=== PATIENT | male | born 1985 ===

== ENCOUNTER → 2020-09-08 10:02 | Outpatient (BNVA) | payer OTHER, SELFPAY | PROVIDERS: Visit Provider Nurse Practitioner | DX: Z76.89 Persons encountering health services in other specified circumstances (principal) ==

== ENCOUNTER 2020-09-18 09:02 | Outpatient (REF) | payer OTHER, SELFPAY ==
--- NOTE | 2020-09-18 09:08 | US_ITS ---
EXAMINATION: US ABDOMEN LIMITED CLINICAL INFORMATION: Upper abdominal pain, unspecified. COMPARISON: None TECHNIQUE: Real-time imaging of the right upper quadrant abdominal viscera. FINDINGS: PANCREAS: The pancreas is normal in size and contour and echogenicity. There is no pancreatic ductal distention or retroperitoneal effusion. LIVER: Normal. The liver is normal in size. The liver contour is normal. Parenchymal echogenicity is normal. No focal hepatic lesion. There is no intrahepatic biliary duct dilatation seen. GALLBLADDER: Normal. The gallbladder is physiologically distended without evidence of stones, sludge, polyps, wall thickening or pericholecystic fluid. Negative sonographic Rubio's sign. COMMON BILE DUCT: Normal in caliber measuring 0.3 cm in diameter. RIGHT KIDNEY: Normal. No hydronephrosis. No renal calculi or focal parenchymal lesions. The kidney measures 9.7 cm in maximum dimension. FREE FLUID: None. US/US abdomen limited IMPRESSION: Normal study.
== END 2020-09-18 09:03 | disposition home or self-care (01) ==
LOC: HO.US 09:02
PROVIDERS: Visit Provider Nurse Practitioner
DX: R10.10 Upper abdominal pain, unspecified (principal)
CPT/HCPCS: 76705

== ENCOUNTER → 2020-10-08 09:07 | Outpatient (BNVA) | payer OTHER, SELFPAY | PROVIDERS: Visit Provider Nurse Practitioner | DX: Z76.89 Persons encountering health services in other specified circumstances (principal) ==

== ENCOUNTER 2022-09-30 07:55 | Outpatient (REF) | payer OTHER, SELFPAY ==
--- NOTE | ~2022-09-30 | XR_ITS ---
EXAMINATION: XR THORACOLUMBAR SPINE CLINICAL INFORMATION: Pain COMPARISON: None TECHNIQUE: 3 views of the thoracic spine including swimmer's view FINDINGS: Bone alignment is normal. No fracture or dislocation. Normal disc spaces. Normal paraspinal soft tissues. XR/XR thoracic spine 2V IMPRESSION: Unremarkable exam.
== END 2022-09-30 07:56 | disposition home or self-care (01) ==
LOC: HO.XRAY 07:55
PROVIDERS: PCP Internal Medicine; Visit Provider Internal Medicine
DX: M54.6 Pain in thoracic spine (principal)
CPT/HCPCS: 72070

== ENCOUNTER 2024-02-16 10:43 | Outpatient (REF) | payer OTHER, SELFPAY ==
[2024-02-16 15:10] LABS: Alanine Aminotransferase 28 U/L (0-40); Albumin Level 4.7 g/dL (3.5-5.0); Alkaline Phosphatase 60 U/L (39-117); Anion Gap 13 (12-20); Aspartate Amino Transferase 30 U/L (5-37); Bilirubin Total 0.4 mg/dL (0.0-1.0); Blood Urea Nitrogen 11 mg/dL (9-16); Calcium 9.6 mg/dL (8.4-10.2); Carbon Dioxide 25 mmol/L (22-29); Chloride 106 mmol/L (96-108); Cholesterol 198 mg/dL (<200); Estimated Glomerular Filt Rate > 60; Glucose Random 82 mg/dL (60-115); HDL Cholesterol 59 mg/dL (>40); LDL Cholesterol Calculated 115 mg/dL (<100); Potassium 3.8 mmol/L (3.3-5.1); Sodium 140 mmol/L (135-145); Total Protein 7.7 g/dL (6.5-8.0); Triglycerides 124 mg/dL (<150)
[2024-02-17 04:01] LABS: Syphilis Screen Nonreactive (Nonreactive)
[2024-02-17 04:25] LABS: HIV AB/AG Nonreactive (Nonreactive); HIV Num 1 0.06 S/CO (0.00-0.99)
== END 2024-02-16 10:44 | disposition home or self-care (01) ==
LOC: HO.CHCLDS 10:43
PROVIDERS: Visit Provider Internal Medicine
DX: Z00.00 Encounter for general adult medical examination without abnormal findings (principal); Z13.6 Encounter for screening for cardiovascular disorders
CPT/HCPCS: 36415; 80053; 80061; 86780; 87389

== ENCOUNTER 2024-02-29 09:29 | Outpatient (REF) | payer OTHER, SELFPAY ==
--- NOTE | ~2024-02-29 | XR_ITS ---
EXAMINATION: XR SINUSES CLINICAL INFORMATION: Set headache COMPARISON: None available. TECHNIQUE: 3 views of the sinuses were obtained. FINDINGS: Paranasal sinuses appear clear without air-fluid levels. No fractures are identified. No radiodense foreign bodies. XR/XR sinus min 3V IMPRESSION: Unremarkable examination.
== END 2024-02-29 09:30 | disposition home or self-care (01) ==
LOC: HO.XRAY 09:29
PROVIDERS: PCP Internal Medicine; Visit Provider Internal Medicine
DX: G44.52 New daily persistent headache (NDPH) (principal)
CPT/HCPCS: 70220

== ENCOUNTER 2024-04-12 14:21 | Outpatient (AMB) | payer OTHER, SELFPAY ==
--- NOTE | 2024-04-12 14:44 | MHC.OFFVIS ---
Intake Visit Reasons: foreskin fissure (N48.89)/ circumcision consult Intake Note: New patient is present for Circumcision Consult Interactive Media Project Manager Required: Yes Interactive Media Project Manager Language: Erp Consultant Name: AL MCNAMARA-[facility] Allergies No Known Allergies Allergy (Verified 04/12/24 21:16) Medication List - Last Reconciled 04/12/24 by ABDOULAYE Clarke clotrimazole-betamethasone 1-0.05 % 1 appl topical BID 4 weeks naproxen mg PO HPI Comments Details: Derian is a pleasant 39-year-old Irish-speaking male patient of Dr. Cabrera who was accompanied by his significant other at today's office visit. He has a past medical history of headaches. He presents to the office today as a new patient for balanitis. In discussion with the patient today reports having followed up with his PCP for ongoing issues he has been having to the foreskin of his penis at which time recommendations were made for urology referral. In assessment of the patient today patient is uncircumcised and the foreskin is completely retractable. There is an area of irritation/redness noted to the penile gland upon retraction of penile foreskin. No open areas, lesions, and or odor noted. Discussed proper care of area. He otherwise denies any bothersome urinary issues or concerns. He denies urinary urgency, urinary frequency, incontinence, nocturia, hematuria, dysuria, foul smelling urine, changes to urinary stream, flank pain, fever, and or chills. He is happy with his current voiding parameters. In office urinalysis results reviewed with the patient today. He otherwise offers no other issues or concerns at this time. [facility] Medical History New persistent daily headache Foreskin fissure Family History Father Enlarged heart Mother Cancer Family/Other Diabetes Family history of thyroid problem Asthma HTN (hypertension) Other Arthritis Social History Alcohol intake: current Alcohol intake frequency: holidays/special occasions only Review of Systems Const All systems reviewed & are unremarkable except as noted in HPI and below Physical Exam Const General: cooperative, healthy appearing, comfortable, no acute distress, well developed, alert and awake Nutritional Appearance: average body habitus Orientation/consciousness: patient oriented x3 Limitations: no limitations HEENT Head: Yes normal to inspection, Yes normocephalic and Yes atraumatic Ears: hearing grossly normal bilaterally Eyes General: appearance normal, both eyes and all related structures Neck Neck: Yes normal visual inspection and Yes trachea midline Chest Chest palpation & inspection: normal inspection of the chest Resp Effort & Inspection: normal respiratory effort and able to speak in complete sentences Cardio Rate: regular rate GI Inspection: Yes normal to inspection General: Yes no CVA tenderness Penis: normal penis, uncircumcised and other (As per HPI) Meatus: meatus normal Scrotum: scrotum normal Testes: Testes normal Back/Spine/Pelvis Back: no CVA tenderness Skin General skin exam: no rashes or lesions noted Neuro General: patient oriented x3 Extrem General: Yes normal to inspection Psych Appearance: grossly normal and well kempt Mental Status: mental status grossly normal Speech and movement: Normal speech and movement present and Clear speech present Affect: normal affect Attitude: cooperative Thought process: Normal thought process present Thought content: Normal thought content present Insight: Fair insight present (Psych) Judgement: Fair judgement present (Psych) Results AMB Urinalysis, Automated UA Leukoctes 0 Livan/uL Last Edit by JAVIER Valdes on 04/12/24 15:06 UA Nitrite Negative Last Edit by JAVIER Valdes on 04/12/24 15:06 UA Urobilinogen 0.2 mg/dL Last Edit by JAVIER Valdes on 04/12/24 15:06 UA Protein 0 mg/dL Last Edit by JAVIER Valdes on 04/12/24 15:06 UA pH 6.0 Last Edit by JAVIER Valdes on 04/12/24 15:06 UA Blood 0 [place]/uL Last Edit by JAVIER Valdes on 04/12/24 15:06 UA Specific [place] 1.015 Last Edit by JAVIER Valdes on 04/12/24 15:06 UA Ketone Negative Last Edit by JAVIER Valdes on 04/12/24 15:06 UA Bilirubin 0 mg/dL Last Edit by JAVIER Valdes on 04/12/24 15:06 UA Glucose 0 mg/dL Last Edit by JAVIER Valdes on 04/12/24 15:06 Results Reviewed Results Reviewed: Laboratory Last Values Urine pH (Auto) 6.0 04/12/24 15:05 Specific [place] (Auto) 1.015 04/12/24 15:05 Urine Protein (Auto) 0 mg/dL 04/12/24 15:05 Glucose (UA)(Auto) 0 mg/dL 04/12/24 15:05 Urine Ketones (Auto) Negative 04/12/24 15:05 Urine Blood (Auto) 0 [place]/uL 04/12/24 15:05 Urine Nitrite (Auto) Negative 04/12/24 15:05 Urine Bilirubin (Auto) 0 mg/dL 04/12/24 15:05 Urine Urobilinogen (Auto) 0.2 mg/dL 04/12/24 15:05 Leukocyte Esterase (Auto) 0 Livan/uL 04/12/24 15:05 Assessment & Plan Assessment & Plan (1) Balanitis: Code(s): N48.1 - Balanitis Category: Medical Plan In office urinalysis results reviewed with the patient today. Discussed at length balanitis. Discussed proper care of area. Start clotrimazole-betamethasone 1-0.05 % Discussed at length risks and benefits of circumcision. Patient currently denies any bothersome urinary issues. He is happy with his current voiding parameters. Follow-up in 1-3 months; or sooner with any issues, concerns, and or questions. Orders: Orders AMB Urinalysis Automated Today Z13.9 - Encounter for screening, unspecified Medications: New clotrimazole-betamethasone 1-0.05 % Apply thin coat 2 times per day 1 appl topical BID 45 grams 0RF 4 weeks N48.1 - Balanitis Patient Instructions: The patient had an opportunity to ask questions regarding the treatment plan. All questions were answered. Physical exam, labs, and imaging were discussed and reviewed in detail. As well as risks, benefits, and discussion of treatment choices. No major barriers to understanding were identified. The patient expressed understanding and agreement with the above treatment plan. The patient was made aware they should contact our office by phone for worsening of their current condition, the appearance of new symptoms, or with any questions or concerns. Compliance is encouraged with any medications and follow up testing that is ordered. It is a privilege to be allowed the opportunity to participate in? your urological care.? Again, if you have any questions or concerns If you have any questions or concerns please do not hesitate to contact me. The office is [phone]. This note is constructed using voice recognition software. While every effort has been made to ensure accuracy drilling field operator errors may have been included. Yours sincerely, ABDOULAYE Clarke Coding Level of Care Code New Pt Level 4 (66117) Diagnoses Balanitis N48.1
== END 2024-04-12 15:46 | disposition home or self-care (01) ==
PROVIDERS: PCP Internal Medicine; Visit Provider Nurse Practitioner Family
DX: Z13.9 Encounter for screening, unspecified (principal); N48.1 Balanitis
CPT/HCPCS: 99204

== ENCOUNTER → 2024-04-12 14:21 | Outpatient (BNVA) | payer OTHER, SELFPAY | PROVIDERS: PCP Internal Medicine; Visit Provider Nurse Practitioner Family | DX: N48.1 Balanitis (principal) | CPT/HCPCS: 81003 ==

== ENCOUNTER 2024-05-15 09:21 | Outpatient (REF) | payer OTHER, SELFPAY ==
--- NOTE | ~2024-05-15 | XR_ITS ---
EXAMINATION: XR CHEST 2 VIEWS CLINICAL INFORMATION: Chest pain of 2 weeks'' duration. COMPARISON: None. TECHNIQUE: Frontal and lateral views of the chest were obtained. FINDINGS: The heart, great vessels, pulmonary vasculature and mediastinum are normal. The lungs show no focal infiltrate, effusion or pneumothorax. There is no acute osseous abnormality. XR/XR chest 2V IMPRESSION: No active cardiopulmonary disease.
== END 2024-05-15 09:22 | disposition home or self-care (01) ==
LOC: HO.XRAY 09:21
PROVIDERS: Absent Provider Internal Medicine; PCP Internal Medicine; Visit Provider Family Medicine
DX: R07.9 Chest pain, unspecified (principal)
CPT/HCPCS: 71046

== ENCOUNTER → 2024-05-23 09:17 | Outpatient (REF) | payer OTHER, SELFPAY ==
--- NOTE | 2024-05-23 09:21 | CA_ITS ---
Acquisition Time: 2024-05-23 09:28:49 Total Exercise Time: 00:13:30 Test Indications: CP Medications: SEE H Protocol: KATELIN Max HR: 184 BPM 101% of Pred: 181 BPM Max BP: 142/080 mmHG Max Work Load: 16.2 METS Exercise stress test exercise 13 min 30 sec of Katelin protocol achieving 101% MPHR, with 6/10 mid chest pressure at peak, without SOB, without arrhythmias, with normotensive response to exercise, without EKG changes. Chest pain resolved with rest. Test reviewed with Dr. Peterson. Recommend stress echocardiogram and echcoardiogram for further evlauation of chest pain Referred By: Tamiko Bush Overread By: Micheline Rosales
== END ==
LOC: HO.CARD 09:17
PROVIDERS: PCP Internal Medicine; Referring Provider Internal Medicine; Visit Provider Family Medicine
DX: R07.9 Chest pain, unspecified (principal)
CPT/HCPCS: 93017

== ENCOUNTER → 2024-05-23 09:21 | Outpatient (BNV) | payer OTHER, SELFPAY | PROVIDERS: PCP Internal Medicine; Referring Provider Internal Medicine; Visit Provider Nurse Practitioner | DX: R07.9 Chest pain, unspecified (principal) | CPT/HCPCS: 93016; 93018 ==

== ENCOUNTER 2024-08-23 09:56 | Outpatient (AMB) | payer OTHER, SELFPAY ==
--- NOTE | 2024-08-23 10:11 | MHC.OFFVIS ---
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 He is accompanied by his , history obtained with help of hostel parent in the room. Patient says a few months he has been having left-sided chest pain which is sharp in nature, pulsating radiating left arm. Was no clear association with exertion. Symptoms can happen at any time. One time symptom lasted for the whole day. Patient did not seek emergency room care at that point time. Since then he has been getting intermittent episodes of this chest discomfort. He does not claim that this chest pain has exertional in nature. The last episode happen 3 days ago which lasted for about 15 minutes. He has no associated symptoms of shortness of breath, diaphoresis. He underwent a treadmill stress test which she did 13 minutes on a treadmill and at high workload had no EKG changes or hemodynamic abnormalities suggestive of ischemia. He did have chest pressure while he was exercising on a treadmill. He is concerned about this chest pain due to the family history of 1 of his father's brother dying in the young age with heart related issues. Details are unknown. Denies any smoking. Denies any drug use. Denies hypertension, diabetes, hyperlipidemia. [facility] Medical History New persistent daily headache Foreskin fissure Family History Father Enlarged heart Mother Cancer Family/Other Diabetes Family history of thyroid problem Asthma HTN (hypertension) Other Arthritis Social History Alcohol intake: current Alcohol intake frequency: holidays/special occasions only Patient Tobacco Use Status: Never used Tobacco Review of Systems Const Denies chills, Denies daytime sleepiness, Denies fatigue, Denies fever(s), Denies frequent falls, Denies poor appetite, Denies snoring, Denies stops breathing during sleep, Denies weakness, Denies weight gain and Denies weight loss Eyes Denies loss of vision ENT Denies dizziness and Denies hearing loss Card Reports chest pain, Denies claudication, Denies leg edema, Denies lightheadedness, Denies palpitations, Denies dyspnea, Denies dyspnea on exertion and Denies orthopnea Resp Denies cough, Denies excessive phlegm production, Denies dyspnea, Denies dyspnea on exertion, Denies snoring and Denies wheezing GI Denies abdominal pain, Denies hematochezia, Denies change in bowel habits, Denies nausea and Denies vomiting Denies dysuria and Denies urinary frequency Musc Denies arthralgias, Denies muscle weakness, Denies numbness and Denies other (frequent falls) Skin/Breast Denies nail changes and Denies rash Neuro Denies Abnormal speech present, Denies dizziness, Denies frequent falls, Denies loss of vision, Denies memory loss, Denies numbness and Denies weakness Psych Denies depression and Denies memory loss Endo Denies fatigue and Denies palpitations Abilio/Lymph Reports easy bruising and Reports other (anemia) Aller/Immun Denies wheezing Physical Exam Vital Signs: Last Vital Signs Pulse 74 08/23/24 10:12 BP 120/78 08/23/24 10:12 BMI result Body Mass Index 22.8 Const General: cooperative, comfortable, no acute distress, well developed, alert, awake and Physically active Nutritional Appearance: well nourished and thin Orientation/consciousness: patient oriented x3 Limitations: no limitations HEENT Head: Yes normocephalic and Yes atraumatic Neck Neck: Yes trachea midline, Yes supple and Yes no JVD Resp Effort & Inspection: normal respiratory effort Auscultation: clear to auscultation bilaterally Cardio Jugular venous distension: no JVD Palpation: normal PMI Rate: regular rate Rhythm: regular rhythm Heart sounds: S1 normal heart sound present, S2 normal heart sound present, no click, no gallops, no murmurs and no rubs GI Auscultation: normal bowel sounds Skin General skin exam: no rashes or lesions noted Neuro General: patient oriented x3 and no focal motor deficits Speech: No Abnormal speech present Extrem General: Yes no clubbing, cyanosis or edema Psych Appearance: grossly normal Office Procedures EKG Details: EKG shows normal sinus rhythm with early transition from V1 to V2 which could represent normal variant versus possible posterior NH which is less likely. [id number], Complete Assessment & Plan Assessment & Plan (1) Atypical chest pain: Code(s): R07.89 - Other chest pain Plan: Patient's atypical chest pain with no clear exertional quality with exercise treadmill stress test extremely high workload within normal EKGs suggestive of unlikely underlying obstructive coronary disease. This was discussed with him details. Prognosis associated with high workload normal stress test was excellent and this was discussed with him. Would suggest an echocardiogram to rule out any structural abnormalities such as hypertrophic cardiomyopathy. EKG changes appear to be most likely related to normal variant. Further treatment based on the findings echocardiogram. I also advised him to figure out the details of his uncles premature that. He will look into it. Will follow up in the clinic if need be. Thank you for allowing me to partake in his care Coding Level of Care Code New Pt Level 3 (60964) Diagnoses Atypical chest pain R07.89 CPT Codes EKG - CPT: 10656-[id number], Complete ([id number])
[2024-08-23 10:12] VITALS: BP 120/78; PULSE 74; BMI 22.8
== END 2024-08-23 10:40 | disposition home or self-care (01) ==
PROVIDERS: PCP Internal Medicine; Visit Provider Internal Medicine Cardiovascular Disease
DX: R07.89 Other chest pain (principal)
CPT/HCPCS: 93010; 99203

== ENCOUNTER → 2024-08-23 09:56 | Outpatient (BNVA) | payer OTHER, SELFPAY | PROVIDERS: PCP Internal Medicine; Visit Provider Internal Medicine Cardiovascular Disease | DX: R07.89 Other chest pain (principal) | CPT/HCPCS: 93005 ==

== ENCOUNTER 2024-12-17 15:01 | Outpatient (REF) | payer OTHER, SELFPAY ==
[2024-12-17 17:48] LABS: MANUAL DIFF FLAG NO
[2024-12-17 17:59] LABS: Basophils Percent Auto 0.5 % (0-2); Eosinophils Absolute Auto 0.2 X10*3/uL (0.0-0.4); Eosinophils Percent Auto 2.5 % (0-4); Hematocrit 42.6 % (42.0-52.0); Hemoglobin 14.1 g/dl (14.0-18.0); Imm Gran Abs Auto 0.01 X10*3/uL (0.00-0.03); Imm Gran Pct Auto 0.2 % (0.0-0.4); Lymphocytes Absolute Auto 2.9 X10*3/uL (1.2-4.9); Lymphocytes Percent Auto 45.5 % (20-40); Mean Corpuscular HGB Conc 33.1 g/dl (31.0-36.0); Mean Corpuscular Hemoglobin 29.8 pg (27.0-33.0); Mean Corpuscular Volume 90.1 fL (80.0-98.0); Mean Platelet Volume 9.9 fL (9.4-12.4); Monocytes Absolute Auto 0.5 X10*3/uL (0.1-1.2); Neutrophils Absolute Auto 2.9 x10*3/uL (2.0-8.3); Neutrophils Percent Auto 44.3 % (45-73); Platelet Count 278 X10*3/uL (160-400); Red Blood Count 4.73 X10*6/uL (4.60-5.80); Red Cell Distribution Width 12.4 % (11.0-16.0); White Blood Count 6.4 X10*3/uL (4.8-10.8)
[2024-12-17 18:11] LABS: Anion Gap 7 (12-20); Blood Urea Nitrogen 7 mg/dL (9-16); C Reactive Protein < 0.04 mg/dL (< or = 0.50); Calcium 9.1 mg/dL (8.4-10.2); Carbon Dioxide 26 mmol/L (22-29); Chloride 111 mmol/L (96-108); Estimated Glomerular Filt Rate > 60; Glucose Random 84 mg/dL (60-115); Potassium 3.9 mmol/L (3.3-5.1); Sodium 140 mmol/L (135-145)
[2024-12-17 18:41] LABS: Erythrocyte Sedimentation Rate 2 MM/HR (0-15)
--- OUTSIDE RECORDS SUMMARY | 2024-12-17 19:16 | XMS_ITS | Clinical Summary ---
Author Organization [employer] Address [address] [place] [address] [address] [place] [address] Care Team Providers Care Lab Pack Chemist Name Role Phone Adriane Cabrera MD Primary Care Provider Allergies No known active allergies Medications ARIPiprazole (Abilify) 5 MG tabletIndicatio ns:Mood disorder (CMS/HCC) Take 1.5 tablets (7.5 mg) by mouth Once daily. 135 tablet 1 3 Active hydrocortisone 1 % lotionIndicatio ns:Foreskin fissure Apply topically 2 times daily. 29 mL 4 Active cholecalciferol (Vitamin D-3) 50 MCG (1999 UT) capsule take 1 by Oral route once a day 2 Active diclofenac sodium 3 % gel Apply 0.5 g topically. 4 Active indomethacin (Indocin) 50 MG capsule Take 1 capsule (50 mg) by mouth with breakfast and with evening meal. 60 capsule 4 Active ibuprofen 600 MG tablet Take 1 tablet (600 mg) by mouth every 8 (eight) hours if needed for moderate pain. 90 tablet 1 5 Active naproxen (Naprosyn) 500 MG tabletIndicatio ns:New daily persistent headache Not to use more than 3 times a week for Headache. 30 tablet 4 12/17/19 25 Discontinu ed(Therapy completed) Active Problems Problem Noted Date Diagnosed Date Chest pain 05/11/2024 Assessment & Plan (05/11/2024 11:19 AM EDT): Pt was seen in the [facility] ER on the 03 of May. Pt was Dx with costochondritis as they considered it to be MSK related. Pt continues with chest pain. Has strong family history of CAD. - Revised previous labs and LDL was 151 Pt was advised to maintain a healthy lifestyle including the consumption of healthy fats like salmon, avocados and nuts. -Pt was advised to not mix Indomethacin with Naproxen Relevant orders: Referral to Cardiology Stress Test XR Chest 2 Views Indomethacin (Indocin) 50 MG capsule Mood disorder 12/16/2022 Assessment & Plan (04/04/2023 1:12 PM EDT): Likely BPD with periods of severe depression and SI and separate periods of excess energy, irritability. Hx binge drinking, nonprescription opiate use (Tramadol). Variable appetite, poor sleep but no nightmares. Hallucinations (name called, ?person seen out of corner of eye). Family history BPD (brother). Poor response to antidepressants. Both Zyprexa 2.5 mg as well as Seroquel 25 mg caused intolerable sedation affecting his ability to work. Mood is only so-so. He will now increase to Abilify 5 mg to take 1.5 tablets (total dose 7.5 mg) once daily. F/U with me in 2 months. He agrees with the plan. Assessment & Plan (02/07/2023 9:45 AM EDT): Likely BPD with periods of severe depression and SI and separate periods of excess energy, irritability. Hx binge drinking, nonprescription opiate use (Tramadol). Variable appetite, poor sleep but no nightmares. Hallucinations (name called, ?person seen out of corner of eye). Family history BPD (brother). Poor response to antidepressants. Both Zyprexa 2.5 mg as well as Seroquel 25 mg caused intolerable sedation affecting his ability to work. Doing well with Abilify 5 mg once daily, and will continue. For problems with sleep, recommend decreasing caffeine consumption, last intake 6-8 hours before desired bedtime. F/U with me in 6-8 weeks. He agrees with the plan. Assessment & Plan (12/16/2022 10:25 AM EST): Likely BPD with periods of severe depression and SI and separate periods of excess energy, irritability. Hx binge drinking, nonprescription opiate use (Tramadol). Variable appetite, poor sleep but no nightmares. Hallucinations (name called, ?person seen out of corner of eye). Family history BPD (brother). Poor response to antidepressants. Both Zyprexa 2.5 mg as well as Seroquel 25 mg caused intolerable sedation affecting his ability to work. Doing well with Abilify 5 mg once daily, and will continue. For problems with sleep, recommend decreasing caffeine consumption, last intake 6-8 hours before desired bedtime. F/U with me in 6-8 weeks. He agrees with the plan. Vitamin D deficiency 01/19/2022 Encounters Date Type Department Care Team Description 12/17/2024 2:00 PM EST Office Visit [facility] [address] [place] [address] Dalia Benjamin MD Right sided facial pain (Primary Dx) 12/17/2024 Travel from Last 3 Months Immunizations Name Administration Dates Next Due Hep B, adult 03/16/2024,02/16/2024 Influenza injectable quadriv alent IIV4 with preservative 09/28/2019,01/30/2018 Influenza injectable quadrivalent preservative f ree 01/14/2022 Tdap 05/11/2024,01/30/2018 Family History Medical History Relation Name Comments COPD Father Heart attack Father's Brother Relation Name Status Comments Father Father's Brother Social History Tobacco Use Types Packs/Day Years Used Date Smoking Tobacco: Never Passive Smoke Exposure: Never Smokeless Tobacco: Never Depression Answer Date Recorded Patient Health Questionnaire-9 Score 5 04/04/2023 Housing Stability Answer Date Recorded What is your housing situation today? I have abida rogers 02/08/[address] you li ve. Do you have problems with any of the following? None of the above 02/08/2024 Food Insecurity Answer Date Recorded Within the past 12 months, y ou worried that your food would run out before you got money to buy more: Never True 02/08/2024 Within the past 12 months,th e food you bought just didn't last and you didn't have enough money to get more: Never True Transportation Answer Date Recorded In the past 12 months, has l ack of transportation kept you from medical appts, meetings, work or from getting things needed for daily living? No 02/08/2024 Utilities Answer Date Recorded In the past 12 months, has t he electric, gas, oil or water company threatened to shut off services in your home? No 02/08/2024 Depression Answer Date Recorded Patient Health Questionnaire-2 Score 0 04/04/2023 Sex and Gender Information Value Date Recorded Sex Assigned at Male 09/20/2022 10:31 AM EDT Legal Sex Male 10:31 AM EDT Gender Identity Male 09/20/2022 10:31 AM EDT Sexual Orientation Choose not to disclose 2021 10:31 AM EDT Last Filed Vital Signs Vital Sign Reading Time Taken Comments Blood Pressure 119/76 12/17/2024 2:05 PM EST Pulse 65 12/17/2024 2:05 PM EST Temperature 36.3 ??C (97.3 ??F) 12/17/2024 2:05 PM ES T Respiratory Rate 20 12/17/2024 2:05 PM EST Oxygen Saturation 99% 12/17/2024 2:05 PM EST Inhaled Oxygen Concentration - - Weight 65.8 kg (145 lb) 12/17/2024 2:05 PM EST Height 174 cm (5' 8.5 ) 12/17/2024 2:05 PM EST Body Mass Index 21.73 12/17/2024 2:05 PM EST Plan of Treatment Upcoming Encounters Date Type Department Care Team (Late st Contact Info) Description 01/21/2025 2:45 PM EST Office Visit [facility] P[facility]S [address] [place] [address] Adriane Cabrera MD [address] [place] [address] Health Maintenance Due Date Last Done Comments Alcohol/Substance Use Screening 1997 Family Planning (PISQ) 2000 Depression Screening 04/04/2024 04/04/2023, 04/04/2023 COVID-19 Vaccine (3 - 2023-2 5 season) 2024 05/20/2021, 04/22/2021 Influenza Vaccine (#1) 2024 2, 09/28/2019, 01/30/2018 Hepatitis B Vaccines (3 of 3 - 19+ 3-dose series) 08/18/2024 03/16/2024, 02/16/2024 SDOH Screening 02/07/2025 02/08/2024 Tobacco Screening 12/17/2025 12/17/2024 Lipid Panel 02/15/2029 02/16/2024, 01/18/2022 DTaP/Tdap/Td Vaccines (3 - T d or Tdap) 05/11/2034 05/11/2024, 01/30/2018 Zoster Vaccines (1 of 2) 2035 RSV Patients and Patients Aged 60 years or older (1 - 1-dose 75+ series) 2060 Hepatitis C Screening Completed 11/26/2021 HIV Screening Completed 02/16/2024, 11/26/2021 HIB Vaccines Aged Out No longer eligi ble based on patient's age to complete this topic HPV Vaccines Aged Out No longer eligi ble based on patient's age to complete this topic Hepatitis A Vaccines Aged Out No long er eligible based on patient's age to complete this topic IPV Vaccines Aged Out No longer eligi ble based on patient's age to complete this topic Meningococcal Vaccine Aged Out No yanet sania eligible based on patient's age to complete this topic Pneumococcal Vaccine: Pediatrics (0 to 5 Years) and At-Risk Patients (6 to 64 Years) Aged Out No longer eligible b ased on patient's age to complete this topic RSV under 20 months Aged Out No longe r eligible based on patient's age to complete this topic Rotavirus Vaccines Aged Out No longer eligible based on patient's age to complete this topic Procedures Procedure Name Priority Date/Time Associated Diagnosis Comments BASIC METABOLIC PANEL Routine 12/17/2024 3:03 PM EST Right sided facial pain C-REACTIVE PROTEIN Routine 12/17/2024 3: 03 PM EST Right sided facial pain SED RATE BY MODIFIED WESTERGREN Routine 12/17/2024 3:03 PM EST Right sided facial pain CBC WITH AUTO DIFFERENTIAL Routine 12/17/2024 3:03 PM EST Right sided facial pain HIV 1/2 ANTIGEN/ANTIBODY, FOURTH GENERATION W/RFL Routine 02/16/2024 10:45 AM EDT Annual physical exam LIPID PANEL, STANDARD Routine 02/16/2024 10:45 AM EDT Annual physical exam ZZZ HISTORICAL HEPATITIS C AB W/REFL TO HCV RNA, QN, PCR Routine 11/26/2021 10:18 AM EST from Last 3 Months or Most Recently Relevant to Health Maintenance Results * (ABNORMAL) CBC auto differential (12/17/2024 3:03 PM EST) White Blood Count 6.4 4.8 - 10.8 X10*3/uL [facility] Red Blood Count 4.73 4.60 - 5.80 X10*6/uL [facility] Hemoglobin 14.1 14.0 - 18.0 g/dl [facility] Hematocrit 42.6 42.0 - 52.0 % [facility] Mean Corpuscular Volume 90.1 80.0 - 98.0 fL [facility] Mean Corpuscular Hemoglobin 29.8 27.0 - 33.0 pg [facility] Mean Corpuscular HGB Conc 33.1 31.0 - 36.0 g/dl [facility] Red Cell Distribution Width 12.4 11.0 - 16.0 % [facility] Platelet Count 278 160 - 400 X10*3/uL [facility] Mean Platelet Volume 9.9 9.4 - 12.4 fL [facility] Neutrophils Percent Auto 44.3(L) 45 - 73 % [facility] Imm Gran Pct Auto 0.2 0.0 - 0.4 % [facility] Lymphocytes Percent Auto 45.5(H) 20 - 40 % [facility] Monocytes Percent Auto 7.0 2 - 11 % [facility] Eosinophils Percent Auto 2.5 0 - 4 % [facility] Basophils Percent Auto 0.5 0 - 2 % [facility] NRBC Pct Auto 0.0 0.0 - 0.2 /100WBC [facility] Neutrophils Absolute Auto 2.9 2.0 - 8.3 x10*3/uL [facility] Imm Gran Abs Auto 0.01 0.00 - 0.03 X10*3/uL [facility] Lymphocytes Absolute Auto 2.9 1.2 - 4.9 X10*3/uL [facility] Monocytes Absolute Auto 0.5 0.1 - 1.2 X10*3/uL [facility] Eosinophils Absolute Auto 0.2 0.0 - 0.4 X10*3/uL [facility] Basophils Absolute Auto 0.0 0.0 - 0.2 X10*3/uL [facility] NRBC Abs Auto 0.000 0.0 - 0.012 X10*3/uL [facility] Blood Venous blood specimen / Unknown 12/17/2024 3:03 PM EST 12/17/2024 5:46 PM EST us Dalia Benjamin MD LAB BLOOD ORDERABLES Final Re sult Performing Organization Address [facility] Co de Phone Number [facility] [address] [place] [phone] * Sed Rate by Modified Betzaida (12/17/2024 3:03 PM EST) Erythrocyte Sedimentation Rate 2 0 - 15 MM/HR [facility] Comment:Patients with polycy themia and many hemoglobin abnormalitiesmay have depressed sed rates whereas patients with anemiamay have elevated sed rates. Blood Venous blood specimen / Unknown 12/17/2024 3:03 PM EST 12/17/2024 5:46 PM EST Dalia Benjamin MD LAB BLOOD ORDERABLES Final Re sult Performing Organization Address [facility]/ZIP Co de Phone Number [facility] [address] [place] [address] [phone] * C-reactive Protein (12/17/2024 3:03 PM EST) C Reactive Protein <0.04 < or = 0.50 mg/dL [facility] Blood Venous blood specimen / Unknown 12/17/2024 3:03 PM EST 12/17/2024 5:46 PM EST Dalia Benjamin MD LAB BLOOD ORDERABLES Final Re sult Performing Organization Address [facility]/ZIP Co de Phone Number [facility] [address] [place] [address] [phone] * (ABNORMAL) Basic Metabolic Panel (12/17/2024 3:03 PM EST) Pathologist [facility] Sodium 140 135 - 145 mmol/L [facility] Potassium 3.9 3.3 - 5.1 mmol/L [facility] Chloride 111(H) 96 - 108 mmol/L [facility] Carbon Dioxide 26 22 - 29 mmol/L [facility] Anion Gap 7(L) 12 - 20 [facility] Urea Nitrogen (BUN) 7(L) 9 - 16 mg/dL [facility] Creatinine, Serum 0.80 0.5 - 1.4 mg/dL [facility] Estimated Glomerular Filt Rate >60 [facility] Comment:Chronic Kidney Disea se: Estimated GFR < 60 mL/min/1.14w1Ldciud Kidney Disease: Estimated GFR < 15 mL/min/1.73m2 Glucose 84 60 - 115 mg/dL [facility] Calcium 9.1 8.4 - 10.2 mg/dL [facility] Blood Venous blood specimen / Unknown 12/17/2024 3:03 PM EST 12/17/2024 5:46 PM EST us Dalia Benjamin MD LAB BLOOD ORDERABLES Final Re sult Performing Organization Address [facility]/ZIP Co de Phone Number [facility] [address] [place] [phone] * HIV-1/2 Antigen and Antibodies, Fourth Generation, with Reflexes (02/16/2024 10:45 AM EDT) HIV AB/AG Nonreactive Nonreactive [facility] Comment:HIV-1 p24 Ag and/or HIV-1/HIV-2 Ab not detected.A test result that is nonreactive does not exclude thepossibility of exposure to or infection with HIV-1 and/orHIV-2. Nonreactive results in this assay for individualswith prior exposure to HIV-1 and/or HIV-2 may be due toantigen and antibody levels that are below the limit ofdetection of this assay.The HistoryFileniArbovax HIV Ag/Ab Combo assay result andsupplemental assay results should be interpreted inconjunction with the patient's clinical presentation,history and other laboratory results. If the results areinconsistent with clinical evidence, additional testing issuggested to confirm the result. Blood Venous blood specimen / Unknown 02/16/2024 10:45 AM EDT 02/16/2024 2:30 PM EDT us Adriane Cabrera MD LAB BLOOD ORDERABLES Final Result [facility] [address] [place] [phone] * (ABNORMAL) Lipid Panel, Standard (02/16/2024 10:45 AM EDT) Triglycerides 124 <150 mg/dL [facility] Comment:Desirable Triglyceri de: less than 150 mg/dLBorderline High Triglyceride 150-199 mg/dLHigh Triglyceride: 200-499 mg/dLVery High Triglyceride: greater than or equal to 5OO mg/dL Cholesterol 198 <200 mg/dL [facility] Comment:Desirable Cholestero l: less than 200 mg/dLBorderline High Cholesterol: 200-239 mg/dLHigh Cholesterol: greater than 239 mg/dL LDL Cholesterol Calculated 115(H) <100 mg/dL [facility] Comment:Desirable LDL: less than 100 mg/dLNear Optimal/Above Optimal LDL: 110- 129 mg/dLBorderline High LDL: 130-159 mg/dLHigh LDL: 160-189 mg/dLVery High LDL: greater than or equal to 190 mg/dL HDL Cholesterol 59 >40 mg/dL [facility] Comment:Desirable HDL: great er than 40 mg/dL Note: This HDL assay may give artificially low results in patients with liver disease. Blood Venous blood specimen / Unknown 02/16/2024 10:45 AM EDT 02/16/2024 2:30 PM EDT us Adriane Cabrera MD LAB BLOOD ORDERABLES Final Result [facility] [address] [place] [phone] [phone] * HEPATITIS C AB W/REFL TO HCV RNA, QN, PCR (11/26/2021 10:18 AM EST) HEPATITIS C ANTIBODY NON-REACT VAUGHN NON-REACT VAUGHN [facility] INDEX 0.01 <1.00 [facility] Comment: ?? HCV antibody was non-reactive. There is no laboratory ?? evidence of HCV infection. ?? In most cases, no further action is required. However, if recent HCV exposure is suspected, a test for HCV RNA (test code 00673) is suggested. ?? For additional information please refer to http://education.[facility]/faq/TBD93s7 (This link is being provided for informational/ educational purposes only.) ?? 11/26/2021 10:1 8 AM EST us Fang Valenzuela MD HISTORICAL/NON ORDERABLE LABS Fi nal Result [facility] [address] from Last 3 Months or Most Recently Relevant to Health Maintenance Insurance [id number] NAVIGATE Care Teams Lab Pack Chemist Relationship Specialty Start Date End Date Adriane Cabrera MD [address] [place] [phone] PCP - General Internal Medicine 02/09/17
--- OUTSIDE RECORDS SUMMARY | 2024-12-17 19:16 | XMS_ITS | Encounter Summary ---
Author Organization [email or web address] [facility] Address [address] [place] [address] Care Team Providers Care Access Consultant Name Role Phone Adriane Cabrera MD Primary Care Provider Encounter Details Date Type Department Care Team (Latest Contact Info) Description 10/09/2019 Abstract [facility] CONVERSIONS Dental, Provider, DDS Social History Tobacco Use Types Packs/Day Years Used Date Smoking Tobacco: Never Assessed Sex and Gender Information Value Date Recorded Sex Assigned at Male 09/20/2022 10:31 AM EDT Legal Sex Male 10:31 AM EDT Gender Identity Male 09/20/2022 10:31 AM EDT Sexual Orientation Choose not to disclose 2021 10:31 AM EDT documented as of this encounter Plan of Treatment Upcoming Encounters Date Type Department Care Team (Late st Contact Info) Description 01/21/2025 2:45 PM EST Office Visit [facility] P[facility]S [address] [place] [address] Adriane Cabrera MD [address] [place] [phone] documented as of this encounter Visit Diagnoses Not on filedocumented in this encounter Care Teams Access Consultant Relationship Specialty Start Date End Date Adriane Cabrera MD [address] [place] [address] PCP - General Internal Medicine 02/09/17 documented as of this encounter
--- OUTSIDE RECORDS SUMMARY | 2024-12-17 19:16 | XMS_ITS | Encounter Summary ---
Author Organization [employer] [facility] Address [address] [place] [address] 7 [place] [address] Care Team Providers Care Ship'S Officer Name Role Phone Adriane Cabrera MD Primary Care Provider Reason for Referral * Imaging (Routine) - Pending Review Specialty Diagnoses / Procedures Referred By Bernardo davies Referred To Contact Radiology Diagnoses Right sided facial pain Procedures CT FACIAL BONES W WO CONTRAST Dalia Benjamin MD [address] [place] [address] Phone: tel: fax: Referral ID Status Reason Start Date Expiration Date V isits Requested Visits Authorized [id number] Pending Review 12/17/2024 12/17/2025 1 1 Encounter Details Date Type Department Care Team (Late st Contact Info) Description 12/17/2024 2:00 PM EST Office Visit [facility] [address] [place], [place] [phone] Dalia Benjamin MD [address] [place], [place] [phone] Right sided facial pain (Primary Dx) Social History Tobacco Use Types Packs/Day Years [...] AM EDT documented as of this encounter Last Filed Vital Signs Vital Sign Reading [...] Mass Index 21.73 12/17/2024 2:05 PM EST documented in this encounter Progress Notes * Dalia Benjamin MD - 12/17/2024 2:00 PM EST Subjective Patient ID: Derian Portillo is a 39 y.o. male who presents for worsening left sided facial pain. HPI Derian is a 39 yo man who was injured at work in 05/12 which resulted in a facial bone fracture requiring surgery. His recovery was slow and Derian still gets pain sometimes in his mouth and often on the right cheek especially when exposed to cold. 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 He is concerned the bones may have not healed properly. Denies any double vision, nasal congestion, pain with mastication (though he avoids chewing on the left side), headaches, earaches. Review of Systems Constitutional: Positive for unexpected weight change (10 lb weight loss/2 years). HENT: Negative for ear discharge, ear pain, facial swelling, hearing loss, mouth sores, sinus pressure, sinus pain and sore throat. Right cheek pain Eyes: Negative for visual disturbance. Neurological: Negative for headaches. Objective BP 119/76 (BP Location: Left arm, Patient Position: Sitting, BP Cuff Size: Adult) Pulse 65 Temp97.3 ??F (36.3 ??C) (Oral) Resp 20 Ht 5' 8.5 (1.74 m) Wt 145 lb (65.8 kg) SpO2 99% BMI 21.73 kg/m?? Physical Exam HENT: Head: Normocephalic and atraumatic. No raccoon eyes or right periorbital erythema. Comments: Mildly edematous right upper cheek Right Ear: Tympanic membrane, ear canal and external ear normal. Left Ear: Tympanic membrane, ear canal and external ear normal. Nose: Nose normal. No congestion or rhinorrhea. Mouth/Throat: Mouth: Mucous membranes are moist. Pharynx: No oropharyngeal exudate or posterior oropharyngeal erythema. Comments: Good dentition Eyes: General: No scleral icterus. Right eye: No discharge. Left eye: No discharge. Extraocular Movements: Extraocular movements intact. Conjunctiva/sclera: Conjunctivae normal. Pupils: Pupils are equal, round, and reactive to light. Neurological: General: No focal deficit present. Mental Status: He is alert. Psychiatric: Mood and Affect: Mood normal. Behavior: Behavior normal. Assessment/Plan Diagnoses and all orders for this visit: Right sided facial pain: DDX includes malunion of fracture, infection, nerve damage. He reports seeing surgeon one time after surgery who says had healed fine. CT sinuses last year were normal. Will recheck facial bone CT and check blood for inflammatory markers, especially in light of unintentional weight loss. If all is normal, will refer him to Neurology. Sent Rx for ibuprofen as needed for pain and wrote him a note for his employer (per his request) to limit his exposure to cold environments. - CT FACIAL BONES W WO CONTRAST; Future - CBC auto differential; Future - Sed Rate by Modified [place]; Future - C-reactive Protein; Future - Basic Metabolic Panel; Future - ibuprofen 600 MG tablet; Take 1 tablet (600 mg) by mouth every 8 (eight) hours if needed for moderate pain. documented in this encounter Plan of Treatment Upcoming Encounters Date Type Department Care Team (Late st Contact Info) Description 01/21/2025 2:45 PM EST Office Visit [facility] [address] [place], [place] [phone] Adriane Cabrera MD [address] [place], [place] [phone] Scheduled Orders Name Type Priority Associated Diagnoses Orde r Schedule CT FACIAL BONES W WO CONTRAST Imaging Routine Right sided facial pain Expected: 12/17/2024, Expires: 12/17/2025 documented as of this encounter Procedures Procedure Name Priority Date/Time Associated Diagnosis Comments CBC WITH AUTO DIFFERENTIAL Routine 12/17/2024 3:03 PM EST Right sided facial pain SED RATE BY MODIFIED WESTERGREN Routine 12/17/2024 3:03 PM EST Right sided facial pain C-REACTIVE PROTEIN Routine 12/17/2024 3: 03 PM EST Right sided facial pain BASIC METABOLIC PANEL Routine 12/17/2024 3:03 PM EST Right sided facial pain documented in this encounter Results * (ABNORMAL) Basic Metabolic Panel (12/17/2024 3:03 PM EST) Sodium 140 135 - 145 mmol/L [facility] Potassium 3.9 3.3 - 5.1 mmol/L [facility] Chloride 111(H) 96 - 108 mmol/L [facility] Carbon Dioxide 26 22 - 29 mmol/L [facility] Anion Gap 7(L) 12 - 20 [facility] Urea Nitrogen (BUN) 7(L) 9 - 16 mg/dL [facility] Creatinine, Serum 0.80 0.5 - 1.4 mg/dL [facility] Estimated Glomerular Filt Rate >60 [facility] Comment:Chronic Kidney Disea se: Estimated GFR < 60 mL/min/1.83q2Pufokx Kidney Disease: Estimated GFR < 15 mL/min/1.73m2 Glucose 84 60 - 115 mg/dL [facility] Calcium 9.1 8.4 - 10.2 mg/dL [facility] Blood Venous blood specimen / Unknown 12/17/2024 3:03 PM EST 12/17/2024 5:46 PM EST us Dalia Benjamin MD LAB BLOOD ORDERABLES Final Re sult Performing Organization Address [facility] Co de Phone Number [facility] [address] [place] [phone] * C-reactive Protein (12/17/2024 3:03 PM EST) C Reactive Protein <0.04 < or = 0.50 mg/dL [facility] Blood Venous blood specimen / Unknown 12/17/2024 3:03 PM EST 12/17/2024 5:46 PM EST us Dalia Benjamin MD LAB BLOOD ORDERABLES Final Re sult Performing Organization Address [facility] Co de Phone Number [facility] [address] [place] [phone] * Sed Rate by John Huston (12/17/2024 3:03 PM EST) Erythrocyte Sedimentation Rate 2 0 - 15 MM/HR [facility] Comment:Patients with polycy themia and many hemoglobin abnormalitiesmay have depressed sed rates whereas patients with anemiamay have elevated sed rates. Blood Venous blood specimen / Unknown 12/17/2024 3:03 PM EST 12/17/2024 5:46 PM EST us Dalia Benjamin MD LAB BLOOD ORDERABLES Final Re sult [facility] [address] [place] [phone] * (ABNORMAL) CBC auto differential (12/17/2024 3:03 PM EST) White Blood Count 6.4 4.8 - 10.8 X10*3/uL [facility] Red Blood Count 4.73 4.60 - 5.80 X10*6/uL [facility] Hemoglobin 14.1 14.0 - 18.0 g/dl [facility] Hematocrit 42.6 42.0 - 52.0 % [facility] Mean Corpuscular Volume 90.1 80.0 - 98.0 fL [facility] Mean Corpuscular Hemoglobin 29.8 27.0 - 33.0 pg [facility] Mean Corpuscular HGB Conc 33.1 31.0 - 36.0 g/dl [facility] Red Cell Distribution Width 12.4 11.0 - 16.0 % [facility] Platelet Count 278 160 - 400 X10*3/uL [facility] Mean Platelet Volume 9.9 9.4 - 12.4 fL [facility] Neutrophils Percent Auto 44.3(L) 45 - 73 % [facility] Imm Gran Pct Auto 0.2 0.0 - 0.4 % [facility] Lymphocytes Percent Auto 45.5(H) 20 - 40 % [facility] Monocytes Percent Auto 7.0 2 - 11 % [facility] Eosinophils Percent Auto 2.5 0 - 4 % [facility] Basophils Percent Auto 0.5 0 - 2 % [facility] NRBC Pct Auto 0.0 0.0 - 0.2 /100WBC [facility] Neutrophils Absolute Auto 2.9 2.0 - 8.3 x10*3/uL [facility] Imm Gran Abs Auto 0.01 0.00 - 0.03 X10*3/uL [facility] Lymphocytes Absolute Auto 2.9 1.2 - 4.9 X10*3/uL [facility] Monocytes Absolute Auto 0.5 0.1 - 1.2 X10*3/uL [facility] Eosinophils Absolute Auto 0.2 0.0 - 0.4 X10*3/uL [facility] Basophils Absolute Auto 0.0 0.0 - 0.2 X10*3/uL [facility] NRBC Abs Auto 0.000 0.0 - 0.012 X10*3/uL [facility] Blood Venous blood specimen / Unknown 12/17/2024 3:03 PM EST 12/17/2024 5:46 PM EST us Dalia Benjamin MD LAB BLOOD ORDERABLES Final Re sult [facility] [address] [place] [phone] documented in this encounter Visit Diagnoses Diagnosis Right sided facial pain- Primary documented in this encounter Additional Health Concerns Assessment Noted Time PHQ-9 Depression Total Score: 5 04/04/20 23 1:00 PM EDT documented as of this encounter Care Teams Ship'S Officer Relationship Specialty Start Date End Date Adriane Cabrera MD [address] [place] [phone] PCP - General Internal Medicine 02/09/17 documented as of this encounter
--- OUTSIDE RECORDS SUMMARY | 2024-12-17 19:16 | XMS_ITS | Encounter Summary ---
Author Organization [employer] Address [address] [facility] 7t [place] [address] Care Team Providers Care Bike Mechanic Name Role Phone Adriane Cabrera MD Primary Care Provider Encounter Details Date Type Department Care Team (Latest Contact Info) Description 12/17/2024 Travel Social History Tobacco Use Types Packs/Day Years [...] 01/21/2025 2:45 PM EST Office Visit [facility] [address] [place] [address] Adriane Cabrera MD [address] [place] [address] documented as of this encounter Visit Diagnoses Not on filedocumented in this encounter Additional Health Concerns Assessment Noted Time PHQ-9 Depression Total Score: 5 04/04/20 23 1:00 PM EDT documented as of this encounter Care Teams Bike Mechanic Relationship Specialty Start Date End Date Adriane Cabrera MD [address] [place] [phone] PCP - General Internal Medicine 02/09/17 documented as of this encounter
== END 2024-12-17 15:02 | disposition home or self-care (01) ==
LOC: HO.CHCLDS 15:01
PROVIDERS: Visit Provider Internal Medicine
DX: R51.9 Headache, unspecified (principal)
CPT/HCPCS: 36415; 80048; 85025; 85652; 86140

== ENCOUNTER 2025-01-21 15:26 | Outpatient (REF) | payer OTHER, SELFPAY ==
--- OUTSIDE RECORDS SUMMARY | 2025-01-21 18:19 | XMS_ITS | Clinical Summary ---
Author Organization [employer] Address [address] [place] [address] 7t [place] [address] Care Team Providers Care White Shoe Examiner Name Role Phone Adriane Cabrera MD Primary Care Provider [phone] Allergies No known active allergies Medications ARIPiprazole (Abilify) 5 MG tabletIndicatio ns:Mood disorder (CMS/HCC) Take 1.5 tablets (7.5 mg) by mouth Once daily. 135 tablet 1 3 Active hydrocortisone 1 % lotionIndicatio ns:Foreskin fissure Apply topically 2 times daily. 29 mL 4 Active cholecalciferol (Vitamin D-3) 50 MCG (2000 UT) capsule take 1 by Oral route [...] moderate pain. 90 tablet 1 5 Active Active Problems Problem Noted Date Diagnosed Date Chest pain 05/11/2024 Assessment & Plan (05/11/2024 11:19 AM EDT): Pt was seen in the [facility] on the 03 of May. Pt [...] Encounters Date Type Department Care Team Description 01/21/2025 2:45 PM EST Office Visit [facility] [address] [place] [address] Adriane Cabrera MD Mood disorder (CMS/HCC) (Primary Dx); Vitamin D deficiency; Other chest pain; Routine screening for STI (sexually transmitted infection); Acute pain of right shoulder 01/21/2025 Travel 01/20/2025 Travel 01/18/2025 Telephone [facility] [address] [place] [address] Adriane Cabrera MD chart prep 01/08/2025 Patient Outreach [facility] [address] [place] [phone] Adriane Cabrera MD Pre-visit Planning (SDOH screening negative and Tobacco screening negative) 12/24/[address] [phone] Adriane Cabrera MD fyi 12/21/2024 Orders Only [facility] [address] [place] [address] Adriane Cabrera MD Right sided facial pain (Primary Dx) 12/20/2024 Telephone [facility] [address] [place] [phone] Adriane Cabrera MD Lab Orders 12/19/2024 Telephone [facility] [address] [place] [phone] Adriane Cabrera MD results 12/17/2024 2:00 PM EST Office Visit [facility] [address] [place] [address] Dalia Benjamin MD Right sided facial pain [...] Passive Smoke Exposure: Never Smokeless Tobacco: Never Alcohol Answer Date Recorded How often do you have a drink containing alcohol ? 1 01/21/2025 How many drinks containing a lcohol do you have on a typical day when you are drinking? 0 01/21/2025 Frequency of Binge Drinking Not on file 01/2025 Depression Answer Date Recorded Patient Health Questionnaire-9 Score 2 01/21/2025 Patient Health Questionnaire-9 Score 2 01/21/2025 Last PHQ-9: Questionnaire Data Not on file 0 01/21/2025 Housing Stability Answer Date Recorded What is your housing situation today? I have abida ken 02/08/[address] you li [...] Date Recorded Patient Health Questionnaire-2 Score 0 01/21/2025 Internet Access Answer Date Recorded Internet Access Q1 Yes 01/08/2025 Internet Access Q2 Not on file 01/08/2025 Sex and Gender Information Value Date Recorded Sex Assigned at Male 09/20/2022 10:31 AM EDT Legal Sex Male 10:31 AM EDT Gender Identity Male 09/20/2022 10:31 AM EDT Sexual Orientation Choose not to disclose 2021 10:31 AM EDT Last Filed Vital Signs Vital Sign Reading Time Taken Comments Blood Pressure 109/69 01/21/2025 2:59 PM EST Pulse 66 01/21/2025 2:59 PM EST Temperature 36.6 ??C (97.9 ??F) 01/21/2025 2:59 PM ES T Respiratory Rate 20 01/21/2025 2:59 PM EST Oxygen Saturation 98% 01/21/2025 2:59 PM EST Inhaled Oxygen Concentration - - Weight 66.2 kg (146 lb) 01/21/2025 2:59 PM EST Height 174 cm (5' 8.5 ) 01/21/2025 2:59 PM EST Body Mass Index 21.88 01/21/2025 2:59 PM EST Plan of Treatment Health Maintenance Due Date Last Done Comments Family Planning (PISQ) 2000 COVID-19 Vaccine (3 - 2023-2 5 season) 2024 05/20/2021, 04/22/2021 Influenza Vaccine (#1) 2024 , 09/28/2019, 01/30/2018 Hepatitis B Vaccines (3 of 3 - 19+ 3-dose series) 08/18/2024 03/16/2024, 02/16/2024 Alcohol/Substance Use Screening 01/21/2026 01/21/2025 Depression Screening 01/21/2026 01/21/2025, 01/21/2025 SDOH Screening 01/21/2026 01/21/2025 Tobacco Screening 01/21/2026 01/21/2025 Lipid Panel 02/15/2029 02/16/2024, 01/18/2022 DTaP/Tdap/Td Vaccines [...] 5 Years) and At-Risk Patients (6 to 49) Years) Aged Out No longer eligible b [...] Blood Count 6.4 4.8 - 10.8 X10*3/uL [facility] Red Blood Count 4.73 4.60 - 5.80 X10*6/uL [facility] Hemoglobin 14.1 14.0 - 18.0 g/dl [facility] Hematocrit 42.6 42.0 - 52.0 % [facility] Mean Corpuscular Volume 90.1 80.0 - 98.0 fL [facility] Mean Corpuscular Hemoglobin 29.8 27.0 - 33.0 pg [facility] Mean Corpuscular HGB Conc 33.1 31.0 - 36.0 g/dl [facility] Red Cell Distribution Width 12.4 11.0 - 16.0 % [facility] Platelet Count 278 160 - 400 X10*3/uL [facility] Mean Platelet Volume 9.9 9.4 - 12.4 fL [facility] Neutrophils Percent Auto 44.3(L) 45 - 73 % [facility] Imm Gran Pct Auto 0.2 0.0 - 0.4 % [facility] Lymphocytes Percent Auto 45.5(H) 20 - 40 % [facility] Monocytes Percent Auto 7.0 2 - 11 % [facility] Eosinophils Percent Auto 2.5 0 - 4 % [facility] Basophils Percent Auto 0.5 0 - 2 % [facility] NRBC Pct Auto 0.0 0.0 - 0.2 /100WBC [facility] Neutrophils Absolute Auto 2.9 2.0 - 8.3 x10*3/uL [facility] Imm Gran Abs Auto 0.01 0.00 - 0.03 X10*3/uL [facility] Lymphocytes Absolute Auto 2.9 1.2 - 4.9 X10*3/uL [facility] Monocytes Absolute Auto 0.5 0.1 - 1.2 X10*3/uL [facility] Eosinophils Absolute Auto 0.2 0.0 - 0.4 X10*3/uL [facility] Basophils Absolute Auto 0.0 0.0 - 0.2 X10*3/uL [facility] NRBC Abs Auto 0.000 0.0 - 0.012 X10*3/uL [facility] Blood Venous blood specimen / Unknown 12/17/2024 3:03 PM EST 12/17/2024 5:46 PM EST us Dalia Benjamin MD LAB BLOOD ORDERABLES Final Re sult Performing Organization Address City/[facility]/ZIP Co de Phone Number [facility] [address] [place] [phone] * Sed Rate by Modified Michael[place]ren (12/17/2024 3:03 PM EST) Erythrocyte Sedimentation Rate 2 0 - 15 MM/HR [facility] Comment:Patients with polycy themia and many hemoglobin abnormalitiesmay have depressed sed rates whereas patients with anemiamay have elevated sed rates. Blood Venous blood specimen / Unknown 12/17/2024 3:03 PM EST 12/17/2024 5:46 PM EST us Dalia Benjamin MD LAB BLOOD ORDERABLES Final Re sult Performing Organization Address [facility] Co de Phone Number [facility] [address] [place] [phone] * C-reactive Protein (12/17/2024 3:03 PM EST) Pathologist [facility] C Reactive Protein <0.04 < or = 0.50 mg/dL [facility] Blood Venous blood specimen / Unknown 12/17/2024 3:03 PM EST 12/17/2024 5:46 PM EST us Dalia Benjamin MD LAB BLOOD ORDERABLES Final Re sult Performing Organization Address City/[facility] Co de Phone Number [facility] [address] [place] [phone] * (ABNORMAL) Basic Metabolic Panel (12/17/2024 3:03 PM EST) Sodium 140 135 - 145 mmol/L [facility] Potassium 3.9 3.3 - 5.1 mmol/L [facility] Chloride 111(H) 96 - 108 mmol/L [facility] Carbon Dioxide 26 22 - 29 mmol/L [facility] Anion Gap 7(L) 12 - 20 [facility] Urea Nitrogen (BUN) 7(L) 9 - 16 mg/dL [facility] Creatinine, Serum 0.80 0.5 - 1.4 mg/dL [facility] Estimated Glomerular Filt Rate >60 [facility] Comment:Chronic Kidney Disea se: Estimated GFR < 60 mL/min/1.09h6Lkieaa Kidney Disease: Estimated GFR < 15 mL/min/1.73m2 Glucose 84 60 - 115 mg/dL [facility] Calcium 9.1 8.4 - 10.2 mg/dL [facility] Blood Venous blood specimen / Unknown 12/17/2024 3:03 PM EST 12/17/2024 5:46 PM EST us Dalia Benjamin MD LAB BLOOD ORDERABLES Final Re sult [facility] [address] [place] [phone] [phone] * HIV-1/2 Antigen and Antibodies, Fourth Generation, with Reflexes (02/16/2024 10:45 AM EDT) HIV AB/AG Nonreactive Nonreactive [facility] Comment:HIV-1 p24 Ag and/or HIV-1/HIV-2 Ab not detected.A test result that is nonreactive does not exclude thepossibility of exposure to or infection with HIV-1 and/orHIV-2. Nonreactive results in this assay for individualswith prior exposure to HIV-1 and/or HIV-2 may be due toantigen and antibody levels that are below the limit ofdetection of this assay.[employer] HIV Ag/Ab Combo assay result andsupplemental assay results should be interpreted inconjunction with the patient's clinical presentation,history and other laboratory results. If the results areinconsistent with clinical evidence, additional testing issuggested to confirm the result. Blood Venous blood specimen / Unknown 02/16/2024 10:45 AM EDT 02/16/2024 2:30 PM EDT us Adriane Cabrera MD LAB BLOOD ORDERABLES Final Result Performing Organization Address [facility] Co de Phone Number [facility] [address] [place] [phone] * (ABNORMAL) Lipid Panel, Standard (02/16/2024 10:45 AM EDT) Triglycerides 124 <150 mg/dL [facility] Comment:Desirable Triglyceri de: less than 150 mg/dLBorderline High Triglyceride 150-199 mg/dLHigh Triglyceride: 200-499 mg/dLVery High Triglyceride: greater than or equal to 5OO mg/dL Cholesterol 198 <200 mg/dL [facility] Comment:Desirable Cholestero l: less than 200 mg/dLBorderline High Cholesterol: 200-239 mg/dLHigh Cholesterol: greater than 239 mg/dL LDL Cholesterol Calculated 115(H) <100 mg/dL [facility] Comment:Desirable LDL: less than 100 mg/dLNear Optimal/Above Optimal LDL: 110- 129 mg/dLBorderline High LDL: 130-159 mg/dLHigh LDL: 160-189 mg/dLVery High LDL: greater than or equal to 190 mg/dL HDL Cholesterol 59 >40 mg/dL [facility] Comment:Desirable HDL: great er than 40 mg/dL Note: This HDL assay may give artificially low results in patients with liver disease. Blood Venous blood specimen / Unknown 02/16/2024 10:45 AM EDT 02/16/2024 2:30 PM EDT us Adriane Cabrera MD LAB BLOOD ORDERABLES Final Result Performing Organization Address [facility] Co de Phone Number [facility] [address] [place] [address] [phone] * HEPATITIS C AB W/REFL TO [...] a test for HCV RNA (test code 70016) is suggested. ?? For additional information please refer to http://education.Crunchyroll/faq/KMV16k3 (This link is being provided for informational/ educational purposes only.) ?? 11/26/2021 10:1 8 AM EST us Fang Valenzuela MD HISTORICAL/NON ORDERABLE LABS Fi nal Result [facility] [address] from Last 3 Months or Most Recently Relevant to Health Maintenance Insurance [employer] Care Teams White Shoe Examiner Relationship Specialty Start Date End Date Adriane Cabrera MD [address] [place] [phone] PCP - General Internal Medicine 02/09/17
--- OUTSIDE RECORDS SUMMARY | 2025-01-21 18:19 | XMS_ITS | Encounter Summary ---
Author Organization [employer] Address [address] [place] [address] Care Team Providers Care Gas Tester Name Role Phone Adriane Cabrera MD Primary Care Provider [phone] Encounter Details Date Type Department Care Team (Latest Contact Info) Description 01/20/2025 Travel Social History Tobacco Use Types Packs/Day [...] as of this encounter Plan of Treatment Not on file documented as of this encounter Visit Diagnoses Not on filedocumented in this encounter Additional Health Concerns Assessment Noted Time PHQ-9 Depression Total Score: 5 04/04/20 23 1:00 PM EDT documented as of this encounter Care Teams Gas Tester Relationship Specialty Start Date End Date Adriane Cabrera MD [address] [place] [phone] PCP - General Internal Medicine 02/09/17 documented as of this encounter
--- OUTSIDE RECORDS SUMMARY | 2025-01-21 18:20 | XMS_ITS | Encounter Summary ---
Author Organization [employer] Address [address] [place] [address] [address] [place] [address] Care Team Providers Care Rn Integrated Name Role Phone Adriane Cabrera MD Primary Care Provider Reason for Visit * Reason Onset Date Comments chart prep 01/18/2025 Encounter Details Date Type Department Care Team ([facility] st Contact Info) Description 01/18/2025 Telephone [facility] MED & PEDS [address] [place] [address] Adriane Cabrera MD [address] [place] [address] chart prep Social History Tobacco Use Types Packs/Day Years [...] Recorded Patient Health Questionnaire-2 Score 0 04/04/2023 Internet Access Answer Date Recorded Internet Access Q1 Yes 01/08/2025 Internet Access Q2 Not on file 01/08/2025 Sex and Gender Information Value Date Recorded Sex Assigned at Male 09/20/2022 10:31 AM EDT Legal Sex Male 10:31 AM EDT Gender Identity Male 09/20/2022 10:31 AM EDT Sexual Orientation Choose not to disclose 2021 10:31 AM EDT documented as of this encounter Miscellaneous Notes * Telephone Encounter - Anthony Bowen MA - 01/18/2025 9:11 AM EST Chart Prep Labs: done Images: not done Vaccines due: yes Referrals: complete Screenings: Overdue care gaps: Sbirt, SDOH, PHQ-9 documented in this encounter Plan of Treatment Not on file documented as of this encounter Visit Diagnoses Not on filedocumented in this encounter Additional Health Concerns Assessment Noted Time PHQ-9 Depression Total Score: 5 04/04/20 23 1:00 PM EDT documented as of this encounter Care Teams Rn Integrated Relationship Specialty Start Date End Date Adriane Cabrera MD [address] [place] [address] [place] [address] PCP - General Internal Medicine 02/09/17 documented as of this encounter
--- OUTSIDE RECORDS SUMMARY | 2025-01-21 18:20 | XMS_ITS | Encounter Summary ---
Author Organization [employer] Address [address] [facility] 7[address] [place] [address] Care Team Providers Care Whiteprinting Machine Operator Name Role Phone Adriane Cabrera MD Primary Care Provider Reason for Visit * Reason Comments Pre-visit Planning SDOH screening negat harley and Tobacco screening negative Encounter Details Date Type Department Care Team ([facility] st Contact Info) Description 01/08/2025 Patient Outreach [facility] [address] [place] [address] Adriane Cabrera MD [address] [place] [address] Pre-visit Planning (SDOH screening negative and Tobacco screening negative) Social History Tobacco Use Types Packs/Day Years Used Date Smoking Tobacco: Never Passive Smoke Exposure: Never Smokeless Tobacco: Never Depression Answer Date Recorded Patient Health Questionnaire-9 Score 5 04/04/2023 Housing Stability Answer Date Recorded What is your housing situation today? I have abidahenry rogers 02/08/[address] you [...] AM EDT documented as of this encounter Progress Notes * Mary Jarvis - 01/08/2025 3:01 PM EST CC Mary Banks placed successful outbound call to patient for pre-visit planning. Patient name and confirmed. Patient confirms appt date and time, and has transportation arrangements. Biggest concern for appointment at this time is no concerns. Patient advised to bring to appointment a photo id and insurance card. Appropriate screenings completed in anticipation of appointment. documented in this encounter Plan of Treatment Not on file documented as of this encounter Visit Diagnoses Not on filedocumented in this encounter Additional Health Concerns Assessment Noted Time PHQ-9 Depression Total Score: 5 04/04/20 23 1:00 PM EDT documented as of this encounter Care Teams Whiteprinting Machine Operator Relationship Specialty Start Date End Date Adriane Cabrera MD [address] [place] [id number] PCP - General Internal Medicine 02/09/17 documented as of this encounter
--- OUTSIDE RECORDS SUMMARY | 2025-01-21 18:20 | XMS_ITS | Encounter Summary ---
Author Organization [employer] [facility] Address [address] [place] [address] [place] [address] Care Team Providers Care Neurology Professor Name Role Phone Adriane Cabrera MD Primary Care Provider Encounter Details Date Type Department Care Team (Latest Contact Info) Description 10/09/2019 Abstract [facility] CONVERSIONS Dental, Provider, DDS Social [...] on filedocumented in this encounter Care Teams Neurology Professor Relationship Specialty Start Date End Date Adriane Cabrera MD [address] [place] [address] PCP - General Internal Medicine 02/09/17 documented as of this encounter
--- OUTSIDE RECORDS SUMMARY | 2025-01-21 18:20 | XMS_ITS | Encounter Summary ---
Author Organization [employer] Address [address] [facility] 7 [place] [address] Care Team Providers Care Radiation Oncology Nurse Name Role Phone Adriane Cabrera MD Primary Care Provider Encounter Details Date Type Department Care Team (Latest Contact Info) Description 01/21/2025 Travel Social History Tobacco Use Types Packs/Day [...] Assessment Noted Time PHQ-9 Depression Total Score: 2 01/22/20 25 3:25 PM EST documented as of this encounter Care Teams Radiation Oncology Nurse Relationship Specialty Start Date End Date Adriane Cabrera MD [address] [place] [address] PCP - General Internal Medicine 02/09/17 documented as of this encounter
--- OUTSIDE RECORDS SUMMARY | 2025-01-21 18:20 | XMS_ITS | Encounter Summary ---
Author Organization [facility] Address [address] [place] [address] Care Team Providers Care Mend Worker Name Role Phone Adriane Cabrera MD Primary Care Provider [phone] Reason for Referral * Consultation (Routine) - Pending Review Specialty Diagnoses / Procedures Referred By Bernardo davies Referred To Contact Physical Therapy Diagnoses Acute pain of right shoulder Adriane Cabrera MD [address] [place] [address] Phone: tel: fax: Referral ID Status Reason Start Date Expiration Date Visits Requested Visits Authorized [id number] Pending Review Specialty Services Required 01/21/2025 01/21/2026 1 1 Reason for Visit * Reason Comments extended office visit Encounter Details Date Type Department Care Team ([facility] st Contact Info) Description 01/21/2025 2:45 PM EST Office Visit [facility] MED & PEDS [address] [place] [address] Adriane Cabrera MD [address] [place] [address] Mood disorder (CMS/HCC) (Primary Dx); Vitamin D deficiency; Other chest pain; Routine screening for STI (sexually transmitted infection); Acute pain of right shoulder Social History Tobacco Use Types Packs/Day Years [...] Mass Index 21.88 01/21/2025 2:59 PM EST documented in this encounter Progress Notes * Adriane Cabrera MD - 01/21/2025 2:45 PM EST Subjective Patient ID: Derian Portillo is a 40 y.o. male who presents for extended office visit. HPI 1) complaining of right shoulder pain for the last 3 days. Exacerbated by movement. Patient also reports hearing the click when he moves his right shoulder. 2) history of mood disorder. Patient is off all medication. States that he feels fine. Patient Active Problem List Diagnosis Mood disorder ([facility]) Vitamin D deficiency Chest pain Current Outpatient Medications on File Prior to Visit Medication Sig Dispense Refill ARIPiprazole (Abilify) 5 MG tablet Take 1.5 tablets (7.5 mg) by mouth Once daily. 135 tablet 1 cholecalciferol (Vitamin D-3) 50 MCG (2000 UT) capsule take 1 by Oral route once a day diclofenac sodium 3 % gel Apply 0.5 g topically. hydrocortisone 1 % lotion Apply topically 2 times daily. 29 mL 0 ibuprofen 600 MG tablet Take 1 tablet (600 mg) by mouth every 8 (eight) hours if needed for moderate pain. 90 tablet 1 indomethacin (Indocin) 50 MG capsule Take 1 capsule (50 mg) by mouth with breakfast and with evening meal. 60 capsule 0 No current facility-administered medications on file prior to visit. No Known Allergies Review of Systems Constitutional: Negative for activity change, appetite change, chills and diaphoresis. HENT: Negative for dental problem, drooling and ear discharge. Eyes: Negative for pain and itching. Respiratory: Negative for cough, choking and chest tightness. Cardiovascular: Negative for palpitations and leg swelling. Gastrointestinal: Negative for abdominal pain, anal bleeding and blood in stool. Endocrine: Negative for cold intolerance and heat intolerance. Genitourinary: Negative for flank pain, frequency and genital sores. Musculoskeletal: Negative for back pain. Neurological: Negative for light-headedness, numbness and headaches. Psychiatric/Behavioral: Negative for agitation, confusion and decreased concentration. Objective Physical Exam Constitutional: General: He is not in acute distress. Appearance: Normal appearance. He is obese. He is not ill-appearing, toxic- appearing or diaphoretic. HENT: Head: Normocephalic. Right Ear: Tympanic membrane normal. Left Ear: Tympanic membrane normal. Nose: Nose normal. Eyes: General: No scleral icterus. Right eye: No discharge. Left eye: No discharge. Pupils: Pupils are equal, round, and reactive to light. Cardiovascular: Rate and Rhythm: Normal rate and regular rhythm. Heart sounds: No murmur heard. No friction rub. No gallop. Pulmonary: Effort: Pulmonary effort is normal. No respiratory distress. Breath sounds: Normal breath sounds. No stridor. No wheezing, rhonchi or rales. Chest: Chest wall: No tenderness. Abdominal: General: Abdomen is flat. There is no distension. Palpations: Abdomen is soft. There is no mass. Tenderness: There is no abdominal tenderness. There is no right CVA tenderness, guarding or rebound. Hernia: No hernia is present. Musculoskeletal: General: Normal range of motion. Cervical back: Normal range of motion. Skin: General: Skin is warm. Neurological: General: No focal deficit present. Mental Status: He is alert. Psychiatric: Mood and Affect: Mood normal. Behavior: Behavior normal. Assessment/Plan documented in this encounter Plan of Treatment Scheduled Orders Name Type Priority Associated Diagnoses Orde r Schedule Chlamydia/N. Gonorrhoeae RNA, TMA, Urogenitial Microbiology Routine Routine screening for STI (sexually transmitted infection) Ordered: 01/21/2025 Hepatitis C Antibody with Reflex to HCV, RNA, Quantitative, Real-Time PCR Lab Routine Routine screening for STI (sexually transmitted infection) Expected: 01/21/2025, Expires: 01/21/2026 HIV-1/2 Antigen and Antibodies, Fourth Generation, with Reflexes Lab Routine Routine screening for STI (sexually transmitted infection) Expected: 01/21/2025 (Approximate), Expires: 01/21/2026 Syphilis Screen Lab Routine Routine screening for STI (sexually transmitted infection) Expected: 01/21/2025, Expires: 01/21/2026 Scheduled Referrals Name Type Priority Associated Diagnoses Orde r Schedule Referral to Physical Therapy Outpatient Referral Routine Acute pain of right shoulder Expected: 01/21/2025 (Approximate), Expires: 01/21/2026 documented as of this encounter Visit Diagnoses Diagnosis Mood disorder (CMS/HCC)- Primary Unspecified episodic mood disorder Vitamin D deficiency Other chest pain Routine screening for STI (sexually transmitted infection) Screening examination for venereal disease Acute pain of right shoulder documented in this encounter Additional Health Concerns Assessment Noted Time PHQ-9 Depression Total Score: 2 01/22/20 25 3:25 PM EST documented as of this encounter Care Teams Mend Worker Relationship Specialty Start Date End Date Adriane Cabrera MD [address] [place] [id number] PCP - General Internal Medicine 02/09/17 documented as of this encounter
--- OUTSIDE RECORDS SUMMARY | 2025-01-21 18:20 | XMS_ITS | Encounter Summary ---
Author Organization [employer] Address [address] [facility] 7t [place] [address] Care Team Providers Care Training Designer Name Role Phone Adriane Cabrera MD Primary Care Provider Reason for Visit * Reason Onset Date Comments fyi 12/24/2024 Encounter Details Date Type Department Care Team ([facility] st Contact Info) Description 12/24/2024 Telephone [facility] MEDICINE [address] [place] [address] Adriane Cabrera MD [address] [place], [place] [id number] fyi Social History Tobacco Use Types Packs/Day Years [...] encounter Miscellaneous Notes * Telephone Encounter - Krista Tran RN - 12/24/2024 4:21 PM EST Noted. Order was sent today without contrast. * Telephone Encounter - Mercedes Mohan - 12/24/2024 3:55 PM EST Tc from Hanny with [facility] informing order that was sent could only be done without contrast. Please contact Hanny [phone] documented in this encounter Plan of Treatment Not on file documented as of this encounter Visit Diagnoses Not on filedocumented in this encounter Additional Health Concerns Assessment Noted Time PHQ-9 Depression Total Score: 5 04/04/20 23 1:00 PM EDT documented as of this encounter Care Teams Training Designer Relationship Specialty Start Date End Date Adriane Cabrera MD [address] [place] [address] PCP - General Internal Medicine 02/09/17 documented as of this encounter
--- OUTSIDE RECORDS SUMMARY | 2025-01-21 18:20 | XMS_ITS | Encounter Summary ---
Author Organization [employer] Address [address] [place] [address] Care Team Providers Care Intake Coordinator Name Role Phone Adriane Cabrera MD Primary Care Provider [phone] Reason for Referral * Imaging (Routine) - Authorized Specialty Diagnoses / Procedures Referred By Bernardo davies Referred To Contact Radiology Diagnoses Right sided facial pain Procedures CT FACIAL BONES WO CONTRAST Adriane Cabrera MD [address] [place] [address] Phone: tel: fax: [address] Phone: tel: fax: Referral ID Status Reason Start Date Expiration Date V isits Requested Visits Authorized [id number] Authorized 12/21/2024 12/21/2025 1 1 Encounter Details Date Type Department Care Team ([facility] st Contact Info) Description 12/21/[address] [facility] MED & PEDS [address] [place] [address] Adriane Cabrera MD [address] [place] [address] Right sided facial pain (Primary Dx) Social [...] as of this encounter Plan of Treatment Scheduled Orders Name Type Priority Associated Diagnoses Orde r Schedule CT FACIAL BONES WO CONTRAST Imaging Routine Right sided facial pain Expected: 12/21/2024, Expires: 12/21/2025 documented as of this encounter Visit Diagnoses Diagnosis Right sided facial pain- Primary documented in this encounter Additional Health Concerns Assessment Noted Time PHQ-9 Depression Total Score: 5 04/04/20 23 1:00 PM EDT documented as of this encounter Care Teams Intake Coordinator Relationship Specialty Start Date End Date Adriane Cabrera MD [address] [place] [id number] PCP - General Internal Medicine 02/09/17 documented as of this encounter
[2025-01-22 08:07] LABS: Syphilis Screen Nonreactive (Nonreactive)
[2025-01-22 08:13] LABS: HIV AB/AG Nonreactive (Nonreactive); HIV Num 1 0.05 S/CO (0.00-0.99); ~HepC Num1 0.31 S/CO (0.00-0.79); ~Hepatitis C Antibody Nonreactive (Nonreactive)
[2025-01-22 13:04] LABS: CT PCR NOT DETECTED (Not Detect.); NG PCR NOT DETECTED (Not Detect.)
== END 2025-01-21 15:27 | disposition home or self-care (01) ==
LOC: HO.CHCLDS 15:26
PROVIDERS: Visit Provider Internal Medicine
DX: Z11.3 Encounter for screening for infections with a predominantly sexual mode of transmission (principal)
CPT/HCPCS: 36415; 86780; 86803; 87389; 87491; 87591

== ENCOUNTER 2025-03-07 15:56 | Outpatient (REF) | payer OTHER, SELFPAY ==
--- NOTE | ~2025-03-07 | CT_ITS ---
CLINICAL HISTORY: HEADACHE CT maxillofacial without contrast Comparison: None Findings: No acute fractures. No dislocations. Temporomandibular joints are intact. Paranasal sinuses and mastoid air cells clear. Unremarkable orbital contents. Visualized intracranial contents are within normal limits. No foreign bodies. IMPRESSION: Unremarkable maxillofacial CT. This document has been electronically signed by: Deniz Cuevas MD on 03/09/2025 06:45:01
== END 2025-03-07 15:57 | disposition home or self-care (01) ==
LOC: HO.CT 15:56
PROVIDERS: PCP Internal Medicine; Visit Provider Internal Medicine
DX: R51.9 Headache, unspecified (principal)
CPT/HCPCS: 70486

== ENCOUNTER → 2025-03-07 16:28 | Outpatient (BNV) | payer OTHER, SELFPAY | PROVIDERS: PCP Internal Medicine; Visit Provider Specialist | DX: R51.9 Headache, unspecified (principal) | CPT/HCPCS: 70486 ==

== ENCOUNTER 2025-04-17 15:31 | Outpatient (REF) | payer OTHER, SELFPAY ==
--- OUTSIDE RECORDS SUMMARY | 2025-04-17 16:03 | XMS_ITS | Clinical Summary ---
Author Organization [employer] Address [address] [facility] [address] [place] [address] Care Team Providers Care Project Architect Name Role Phone Adriane Cabrera MD Primary Care Provider Allergies No known active allergies Medications * This document contains information received from the source organization and may not represent a complete record from that organization. hydrocortisone 1 % lotionIndicati ons:Foreskin fissure Apply topically 2 times daily. 29 mL 02/16/20 24 Active cholecalcifero l (Vitamin D-3) 50 MCG (1999 UT) capsule take 1 by Oral route once a day 07/06/20 22 Active diclofenac sodium 3 % gel Apply 0.5 g topically. 05/03/20 24 Active indomethacin (Indocin) 50 MG capsule Take 1 capsule (50 mg) by mouth with breakfast and with evening meal. 60 capsule 05/11/20 24 Active ibuprofen 600 MG tablet Take 1 tablet (600 mg) by mouth every 8 (eight) hours if needed for moderate pain. 90 tablet 1 12/17/19 25 Active Omeprazole 20 MG tablet delayed-releas e Take 1 tablet (20 mg) by mouth Once per day. 90 tablet 1 04/09/20 25 Active ARIPiprazole (Abilify) 5 MG tabletIndicati ons:Mood disorder (CMS/HCC) Take 1 tablet (5 mg) by mouth in the morning. 30 tablet 1 04/17/20 25 025 Active simethicone (Mylicon) 80 MG tabletIndicati ons:Bloating Take 1 tablet (80 mg) by mouth if needed in the morning, at noon, in the evening, and at bedtime (abdominal pain). 90 tablet 04/17/20 25 Active ARIPiprazole (Abilify) 5 MG tabletIndicati ons:Mood disorder (CMS/HCC) Take 1.5 tablets (7.5 mg) by mouth Once daily. 135 tablet 1 04/04/20 23 025 Discontinued(Re order (will not trigger notification to Pharmacy)) ondansetron (Zofran) 4 MG tablet Take 1 tablet (4 mg) by mouth every 8 (eight) hours if needed for nausea or vomiting for up to 7 days. 20 tablet 04/09/20 25 025 Active Problems Problem Noted Date Diagnosed Date Gastroesophageal reflux disease without esophagi tis 04/09/2025 Assessment & Plan (04/09/2025 9:28 AM EDT): Symptoms started over 1 week ago, denied fever/chills, no abdominal bloating. Will start on omeprazole, lifestyle modifications reviewed, ER precautions reviewed, call back if not improving in 1 week Moderate major depression 03/01/2025 Mild depression 03/01/2025 History of psychological trauma 03/01/2025 Chest pain 05/11/2024 Assessment & Plan (05/11/2024 11:19 AM EDT): Pt was seen in the [facility] ER on the 03 of May. Pt [...] the plan. Vitamin D deficiency 01/19/2022 Encounters * This document contains information received from the source organization and may not represent a complete record from that organization. Date Type Department Care Team Description 04/17/2025 2:45 PM EDT Office Visit [facility] [address] [place] [address] Adriane Cabrera MD Right lower quadrant abdominal pain (Primary Dx); Bloating 04/17/2025 Travel 04/16/2025 Travel 04/16/2025 Telephone [facility] [address] [place] [address] Adriane Cabrera MD provider switch 04/16/2025 Telephone [facility] [address] [place] [address] Adriane Cabrera MD Nurse Triage 04/10/2025 Travel 04/09/2025 8:45 AM EDT Office Visit [facility] [address] [place] [address] Kamran Kirk MD Gastroesophageal reflux disease without esophagitis (Primary Dx) 04/09/2025 Travel 02/22/2025 Travel 01/21/2025 2:45 PM EST Office Visit [facility] [address] [place] [address] Adriane Cabrera MD Mood disorder ([facility]) (Primary Dx); Vitamin D deficiency; Other chest pain; Routine screening for STI (sexually transmitted infection); Acute pain of right shoulder 01/21/2025 Travel 01/20/2025 Travel 01/18/2025 Telephone [facility] [address] [place] [address] Adriane Cabrera MD chart prep from Last 3 Months Immunizations Immunization Administration Dates Next Due Hep B, adult [...] Answer Date Recorded Patient Health Questionnaire-9 Score 11 03/01/2025 Patient Health Questionnaire-9 Score 11 03/01/2025 Last PHQ-9: Questionnaire Data Not on file 0 03/01/2025 Housing Stability Answer Date Recorded What is [...] Answer Date Recorded Patient Health Questionnaire-2 Score 2 03/01/2025 Internet Access Answer Date Recorded Internet Access [...] Sign Reading Time Taken Comments Blood Pressure 121/76 04/17/2025 2:58 PM EDT Pulse 58 04/17/2025 2:58 PM EDT Temperature 36.7 ??C (98 ??F) 04/17/2025 2:58 PM EDT Respiratory Rate 20 04/17/2025 2:58 PM EDT Oxygen Saturation 99% 04/17/2025 2:58 PM EDT Inhaled Oxygen Concentration - - Weight 63 kg (139 lb) 04/17/2025 2:58 PM EDT Height 174 cm (5' 8.5 ) 04/17/2025 2:58 PM EDT Body Mass Index 20.83 04/17/2025 2:58 PM EDT Plan of Treatment Upcoming Encounters Date Type Department Care Team ([facility] st Contact Info) Description 07/16/2025 3:30 PM EDT Office Visit [facility] [address] [place] [address] Adriane Cabrera MD [address] [place] [address] Health Maintenance Due Date Last Done Comments Family Planning (PISQ) 2000 COVID-19 Vaccine (3 - 2023-2 5 season) 2024 05/20/2021, 04/22/2021 Influenza Vaccine (#1) 2024 , 09/28/2019, 01/30/2018 Hepatitis B Vaccines (3 of 3 - 19+ 3-dose series) 08/18/2024 03/16/2024, 02/16/2024 Depression Monitoring 08/31/2025 03/01/2025 , 03/01/2025 Disability Screening 12/17/2025 12/17/2024 Alcohol/Substance Use Screening 01/21/2026 01/21/2025 SDOH Screening 01/21/2026 01/21/2025 Tobacco Screening 04/17/2026 04/17/2025 Lipid Panel 02/15/2029 02/16/2024, 01/18/2022 DTaP/Tdap/Td Vaccines (3 - T d or Tdap) 05/11/2034 05/11/2024, 01/30/2018 Zoster Vaccines (1 of 2) 2035 RSV Patients and Patients Aged 60 years or older (1 - 1-dose 75+ series) 2060 HIV Screening Completed 01/21/2025, 02/16/2024, 11/26/2021 Hepatitis C Screening Completed 01/21/2025 , 11/26/2021 HIB Vaccines Aged Out No longer [...] patient's age to complete this topic Meningococcal B Vaccine Aged Out No l onger eligible based on patient's age to complete [...] Procedure Name Priority Date/Time Associated Diagnosis Comments CT SINUS FACIAL BONES WO CONTRAST Routine 03/09/2025 6:45 AM EDT CHLAMYDIA/N. GONORRHOEAE RNA, TMA, UROGENITAL Routine 01/21/2025 3:30 PM EST Routine screening for STI (sexually transmitted infection) SYPHILIS SCREEN Routine 01/21/2025 3:29 PM EST Routine screening for STI (sexually transmitted infection) HIV 1/2 ANTIGEN/ANTIBODY, FOURTH GENERATION W/RFL Routine 01/21/2025 3:29 PM EST Routine screening for STI (sexually transmitted infection) HEPATITIS C AB W/REFL TO HCV RNA, QN, PCR Routine 01/21/2025 3:29 PM EST Routine screening for STI (sexually transmitted infection) LIPID PANEL, STANDARD Routine 02/16/2024 10:45 AM EDT Annual physical exam from Last 3 Months or Most Recently Relevant to Health Maintenance Results * CT Sinus Facial Bones w/o Contrast (03/09/2025 6:45 AM EDT) Anatomical Region Laterality Modality Computed Tomogra phy 03/09/2025 6:45 AM EDT Narrative 03/09/2025 6:46 AM EDT ? [facility] ?[address] ?[place] [address] ? CT Scan Report ? Signed ? Patient: Portillo,Derian ?MR#: [id number] ?? [id number] ? : 1985 ?Acct:[id number] ? Age/Sex: 40 / M ?ADM Date: 03/07/25 ? Loc: HO.CT ? Attending Dr: Adriane Cabrera MD ? Ordering Physician: Adriane Cabrera MD ?? Date of Service: 03/07/25 ?? Procedure(s): CT facial bones wo IV con ?? Accession Number(s): [id number] ? cc: Adriane Cabrera MD ? Report Number: ?? [id number]: Total DLP = ??173.00 mGy-cm ? CLINICAL HISTORY: HEADACHE ? CT maxillofacial without contrast ? Comparison: None ? Findings: ?? No acute fractures. No dislocations. ?? Temporomandibular joints are intact. ?? Paranasal sinuses and mastoid air cells clear. ? Unremarkable orbital contents. ?? Visualized intracranial contents are within normal limits. ?? No foreign bodies. ? IMPRESSION: ?? Unremarkable maxillofacial CT. ? This document has been electronically signed by: Deniz Cuevas MD on ?? 03/09/2025 06:45:01 ? Dictated By: ?Deniz Cueavs MD ? Signed By: ?<Electronically signed by Deniz Cuevas MD in OV> ?03/09/25 0645 ? DD/ 0645 ? TD/TT: 03/09/25 0645 ? Coal Cutter: ? Procedure Note Oj, Image - 03/09/[address] [address] [address] Scan Report Signed Patient: Fang Portillo#: [id number] : 1985Acct:[id number] Age/Sex: 40 / MADM Date: 03/07/25 Loc: HO.CT Attending Dr: Adriane Cabrera MD Ordering Physician: Adriane Cabrera MD Date of Service: 03/07/25 Procedure(s): CT facial bones wo IV con Accession Number(s): [id number] cc: Adriane Cabrera MD Report Number: [id number]: Total DLP = 173.00 mGy-cm CLINICAL HISTORY: HEADACHE CT maxillofacial without contrast Comparison: None Findings: No acute fractures. No dislocations. Temporomandibular joints are intact. Paranasal sinuses and mastoid air cells clear. Unremarkable orbital contents. Visualized intracranial contents are within normal limits. No foreign bodies. IMPRESSION: Unremarkable maxillofacial CT. This document has been electronically signed by: Deniz Cuevas MD on 03/09/2025 06:45:01 Dictated By: Deniz Cuevas MD Signed By: <Electronically signed by Deniz Cuevas MD in OV> 03/09/25644 DD/ 4 TD/TT: 03/09/25644 Coal Cutter: Adriane Cabrera MD IMG CT PROCEDURES Final Res ult * Chlamydia/N. Gonorrhoeae RNA, TMA, Urogenitial (01/21/2025 3:30 PM EST) CT PCR NOT DETECTED Not Detect. [facility] Comment:A not detected test result does not exclude the possibilityof infection because test results can be affected byimproper specimen collection, concurrent antibiotic therapy,or the number of organisms in the specimen which may bebelow the sensitivity of the test. As with many diagnostictests, results from the Xpert CT/NG assay should beinterpreted in conjunction with other laboratory andclinical data available to the clinician.Xpert CT/NG performance has not been evaluated in patientsless than 14 years of age. The assay should not be used forthe evaluationof suspected sexual abuse or for other medico-legalindications. Additional testing is recommended in anycircumstance when false positive or false negative resultscould lead to adverse medical, social or psychologicalconsequences. NG PCR NOT DETECTED Not Detect. [facility] Comment:A not detected test result does not exclude the possibilityof infection because test results can be affected byimproper specimen collection, concurrent antibiotic therapy,or the number of organisms in the specimen which may bebelow the sensitivity of the test. As with many diagnostictests, results from the Xpert CT/NG assay should beinterpreted in conjunction with other laboratory andclinical data available to the clinician.Xpert CT/NG performance has not been evaluated in patientsless than 14 years of age. The assay should not be used forthe evaluationof suspected sexual abuse or for other medico-legalindications. Additional testing is recommended in anycircumstance when false positive or false negative resultscould lead to adverse medical, social or psychologicalconsequences. Urine (Urine, Random) 01/21/2025 3:30 PM EST 01/21/2025 5:45 PM EST Narrative [facility] - 01/22/2025 1:04 PM EST Urine Adriane Cabrera MD LAB MICROBIOLOGY - GENERAL ORDERABLES Final Result Performing Organization Address [facility]/ZIP Co de Phone Number [facility] [address] [place] [phone] * Syphilis Screen (01/21/2025 3:29 PM EST) Syphilis Screen Nonreactive Nonreactive [facility] Blood 01/21/2025 3:29 PM EST 01/21/2025 5:45 PM EST Adriane Cabrera MD LAB BLOOD ORDERABLES Final Result Performing Organization Address [facility] Co de Phone Number [facility] [address] [place] [phone] * Hepatitis C Antibody with Reflex to HCV, RNA, Quantitative, Real-Time PCR (01/21/2025 3:29 PM EST) Hepatitis C Antibody Nonreactive Nonreactive [facility] Comment:Antibodies to HCV no t detected; does not exclude early acuteHCV infection. Blood Venous blood specimen / Unknown 01/21/2025 3:29 PM EST 01/21/2025 5:45 PM EST us Adriane Cabrera MD LAB BLOOD ORDERABLES Final Result Performing Organization Address City/[facility]/ZIP Co de Phone Number [facility] [address] [place] [phone] * HIV-1/2 Antigen and Antibodies, Fourth Generation, with Reflexes (01/21/2025 3:29 PM EST) HIV AB/AG Nonreactive Nonreactive [facility] Comment:HIV-1 p24 Ag and/or HIV-1/HIV-2 Ab not detected.A test result that is nonreactive does not exclude thepossibility of exposure to or infection with HIV-1 and/orHIV-2. Nonreactive results in this assay for individualswith prior exposure to HIV-1 and/or HIV-2 may be due toantigen and antibody levels that are below the limit ofdetection of this assay.The [employer] HIV Ag/Ab Combo assay result andsupplemental assay results should be interpreted inconjunction with the patient's clinical presentation,history and other laboratory results. If the results areinconsistent with clinical evidence, additional testing issuggested to confirm the result. Blood Venous blood specimen / Unknown 01/21/2025 3:29 PM EST 01/21/2025 5:45 PM EST us Adriane Cabrera MD LAB BLOOD ORDERABLES Final Result Performing Organization Address City/[facility]/ZIP Co de Phone Number [facility] [address] [place] [phone] * (ABNORMAL) Lipid Panel, Standard (02/16/2024 10:45 AM EDT) Triglycerides 124 <150 mg/dL [facility] Comment:Desirable Triglyceri de: less than 150 mg/dLBorderline High Triglyceride 150-199 mg/dLHigh Triglyceride: 200-499 mg/dLVery High Triglyceride: greater than or equal to 5OO mg/dL Cholesterol 198 <200 mg/dL [facility] Comment:Desirable Cholestero l: less than 200 mg/dLBorderline High Cholesterol: 200-239 mg/dLHigh Cholesterol: greater than 239 mg/dL LDL Cholesterol Calculated 115(H) <100 mg/dL [facility] Comment:Desirable LDL: less than 100 mg/dLNear Optimal/Above Optimal LDL: 110- 129 mg/dLBorderline High LDL: 130-159 mg/dLHigh LDL: 160-189 mg/dLVery High LDL: greater than or equal to 190 mg/dL HDL Cholesterol 59 >40 mg/dL [facility] Comment:Desirable HDL: great er than 40 mg/dL Note: This HDL assay may give artificially low results in patients with liver disease. Blood Venous blood specimen / Unknown 02/16/2024 10:45 AM EDT 02/16/2024 2:30 PM EDT us Adriane Cabrera MD LAB BLOOD ORDERABLES Final Result Performing Organization Address City/State/[facility] Co de Phone Number [facility] [address] [place] [phone] from Last 3 Months or Most Recently Relevant to Health Maintenance Insurance CHOICE Care Teams Project Architect Relationship Specialty Start Date End Date Adriane Cabrera MD [address] [place] [phone] PCP - General Internal Medicine 02/09/17
[2025-04-17 17:31] LABS: MANUAL DIFF FLAG NO
[2025-04-17 17:35] LABS: Appearance Urine Clear; Color Urine Yellow; Glucose Urine UA Negative (Negative); Leukocyte Esterase Urine Negative (Negative); Nitrite Urine Negative (Negative); PH 7.5 (5.0-9.0); Specific Gravity - Urine 1.025 (1.005-1.025); Urine Blood Negative (Negative); Urine Ketones Negative (Negative); Urine Protein Negative (Neg-Trace)
[2025-04-17 17:38] LABS: Bacteria Urine None Seen (None Seen); Hyaline Casts Urine 0-2 /LPF (0-2); RBC Urine 0-2 /HPF (0-2); Squamous Epithelial Cell Urine 0-2 /HPF (0-2); WBC Urine 0-5 /HPF (0-5)
[2025-04-17 18:04] LABS: Basophils Absolute Auto 0.1 X10*3/uL (0.0-0.2); Basophils Percent Auto 0.7 % (0-2); Eosinophils Percent Auto 13.8 % (0-4); Hematocrit 41.8 % (42.0-52.0); Hemoglobin 14.2 g/dl (14.0-18.0); Imm Gran Abs Auto 0.02 X10*3/uL (0.00-0.03); Imm Gran Pct Auto 0.3 % (0.0-0.4); Lymphocytes Percent Auto 27.9 % (20-40); Mean Corpuscular Hemoglobin 30.3 pg (27.0-33.0); Mean Corpuscular Volume 89.1 fL (80.0-98.0); Mean Platelet Volume 10.1 fL (9.4-12.4); Monocytes Absolute Auto 0.4 X10*3/uL (0.1-1.2); Monocytes Percent Auto 5.2 % (2-11); Neutrophils Absolute Auto 3.7 x10*3/uL (2.0-8.3); Neutrophils Percent Auto 52.1 % (45-73); Platelet Count 279 X10*3/uL (160-400); Red Blood Count 4.69 X10*6/uL (4.60-5.80); Red Cell Distribution Width 12.3 % (11.0-16.0); White Blood Count 7.1 X10*3/uL (4.8-10.8)
[2025-04-18 19:02] LABS: Immunoglobulin A 270 mg/dL (47-310); Transglutaminase IgA <1.0 U/mL
== END 2025-04-17 15:32 | disposition home or self-care (01) ==
LOC: HO.CHCLDS 15:31
PROVIDERS: Visit Provider Internal Medicine
DX: R10.31 Right lower quadrant pain (principal); R14.0 Abdominal distension (gaseous)
CPT/HCPCS: 36415; 81001; 82784; 85025; 86364

== ENCOUNTER 2025-04-18 08:55 | Outpatient (REF) | payer OTHER, SELFPAY ==
--- NOTE | ~2025-04-18 | XR_ITS ---
CLINICAL HISTORY: right lower quadrant abdominal pain 1 view abdomen Comparison: None Findings: No pneumoperitoneum or pneumatosis. No abnormal calcifications. No acute fractures. IMPRESSION: Normal bowel gas pattern This document has been electronically signed by: Deniz Cuevas MD on 04/19/2025 08:47:52
--- OUTSIDE RECORDS SUMMARY | 2025-04-18 09:21 | XMS_ITS | Clinical Summary ---
Author Organization [employer] Address [address] [place] [address] Care Team Providers Care Casing Running Machine Tender Name Role Phone Adriane Cabrera MD Primary [...] AM EDT): Pt was seen in the [facility] ER on the 03 of [...] Description 04/17/2025 2:45 PM EDT Office Visit [facility] [address] [place] [address] Adriane Cabrera MD Right lower quadrant abdominal pain (Primary Dx); Bloating 04/17/2025 Travel 04/16/2025 Travel 04/16/2025 Telephone [facility] [address] [place] [address] Adriane Cabrera MD provider switch 04/16/2025 Telephone [facility] [address] [place] [address] Adriane Cabrera MD Nurse Triage 04/10/2025 Travel 04/09/2025 8:45 AM EDT Office Visit [facility] [address] [place] [address] Kamran Kirk MD Gastroesophageal reflux disease without esophagitis (Primary Dx) 04/09/2025 Travel 02/22/2025 Travel 01/21/2025 2:45 PM EST Office Visit [facility] [address] [place] [address] Adriane Cabrera MD Mood disorder ([facility]) (Primary Dx); Vitamin D deficiency; Other chest pain; Routine screening for STI (sexually transmitted infection); Acute pain of right shoulder 01/21/2025 Travel 01/20/2025 Travel 01/18/2025 Telephone [facility] [address] [place] [address] Adriane Cabrera MD chart prep from Last [...] Upcoming Encounters Date Type Department Care Team ([facility] st Contact Info) Description 07/16/2025 3:30 PM EDT Office Visit [facility] [address] [place] [address] Adriane Cabrera MD [address] [place] [address] Health Maintenance Due Date Last Done Comments [...] Procedure Name Priority Date/Time Associated Diagnosis Comments URINALYSIS, COMPLETE, WITH REFLEX TO CULTURE Routine 04/17/2025 3:40 PM EDT Right lower quadrant abdominal pain CBC WITH AUTO DIFFERENTIAL Routine 04/17/2025 3:33 PM EDT Right lower quadrant abdominal pain CT SINUS FACIAL BONES WO CONTRAST Routine [...] Recently Relevant to Health Maintenance Results * Urinalysis, Complete, with Reflex to Culture (04/17/2025 3:40 PM EDT) Color Urine Yellow [facility] Appearance Urine Clear [facility] PH 7.5 5.0 - 9.0 [facility] Glucose Urine UA Negative Negative mg/dL [facility] Urine Blood Negative Negative [facility] Specific [place] - Urine 1.025 1.005 - 1.025 [facility] Urine Protein Negative Neg-Trace mg/dL [facility] Urine Ketones Negative Negative mg/dL [facility] Nitrite Urine Negative Negative [facility] Leukocyte Esterase Urine Negative Negative [facility] RBC Urine 0-2 0 - 2 /HPF [facility] Urine WBC 0-5 0 - 5 /HPF [facility] Urine Squamous Epithelial Cell 0-2 0 - 2 /HPF [facility] Urine Bacteria None Seen None Seen [facility] Hyaline Casts, Urine 0-2 0 - 2 /LPF [facility] Urine 04/17/2025 3:40 PM EDT 04/17/2025 5:29 PM EDT Narrative [facility] - 04/17/2025 5:49 PM EDT [id number], Clean Catch us Adriane Cabrera MD LAB URINE ORDERABLES Final Result [facility] [address] [place] [phone] * (ABNORMAL) CBC auto differential (04/17/2025 3:33 PM EDT) White Blood Count 7.1 4.8 - 10.8 X10*3/uL [facility] Red Blood Count 4.69 4.60 - 5.80 X10*6/uL [facility] Hemoglobin 14.2 14.0 - 18.0 g/dl [facility] Hematocrit 41.8(L) 42.0 - 52.0 % [facility] Mean Corpuscular Volume 89.1 80.0 - 98.0 fL [facility] Mean Corpuscular Hemoglobin 30.3 27.0 - 33.0 pg [facility] Mean Corpuscular HGB Conc 34.0 31.0 - 36.0 g/dl [facility] Red Cell Distribution Width 12.3 11.0 - 16.0 % [facility] Platelet Count 279 160 - 400 X10*3/uL [facility] Mean Platelet Volume 10.1 9.4 - 12.4 fL [facility] Neutrophils Percent Auto 52.1 45 - 73 % [facility] Imm Gran Pct Auto 0.3 0.0 - 0.4 % [facility] Lymphocytes Percent Auto 27.9 20 - 40 % [facility] Monocytes Percent Auto 5.2 2 - 11 % [facility] Eosinophils Percent Auto 13.8(H) 0 - 4 % [facility] Basophils Percent Auto 0.7 0 - 2 % [facility] NRBC Pct Auto 0.0 0.0 - 0.2 /100WBC [facility] Neutrophils Absolute Auto 3.7 2.0 - 8.3 x10*3/uL [facility] Imm Gran Abs Auto 0.02 0.00 - 0.03 X10*3/uL [facility] Lymphocytes Absolute Auto 2.0 1.2 - 4.9 X10*3/uL [facility] Monocytes Absolute Auto 0.4 0.1 - 1.2 X10*3/uL [facility] Eosinophils Absolute Auto 1.0(H) 0.0 - 0.4 X10*3/uL [facility] Basophils Absolute Auto 0.1 0.0 - 0.2 X10*3/uL [facility] NRBC Abs Auto 0.000 0.0 - 0.012 X10*3/uL [facility] Blood Venous blood specimen / Unknown 04/17/2025 3:33 PM EDT 04/17/2025 5:29 PM EDT us Adriane Cabrera MD LAB BLOOD ORDERABLES Final Result [facility] [address] [place] [phone] * CT Sinus Facial Bones w/o Contrast (03/09/2025 6:45 AM EDT) Anatomical Region Laterality Modality Computed Tomogra phy 03/09/2025 6:45 AM EDT Narrative 03/09/2025 6:46 AM EDT ? [facility] ?[address] ?[place] [address] ? CT Scan Report ? Signed ? Patient: Portillo,Derian ?MR#: [id number] ?? [id number] ? : 1985 ?Acct:[id number] ? Age/Sex: 40 / M ?ADM Date: 03/07/25 ? Loc: HO.CT ? Attending Dr: Adriane Cabrera MD ? Ordering Physician: Adriane Cabrera MD ?? Date of Service: 03/07/25 ?? Procedure(s): CT facial bones wo IV con ?? Accession Number(s): [id number] ? cc: Adriane Cabrera MD ? Report Number: ?? [id number]: Total DLP = ??173.00 mGy-cm ? CLINICAL [...] ?? 03/09/2025 06:45:01 ? Dictated By: ?Deniz Cuevas MD ? Signed By: ?<Electronically signed by Deniz Cuevas MD in OV> ?03/09/25 0645 ? DD/ 0645 ? TD/TT: 03/09/25 0645 ? Tetryl Blender Operator: ? Procedure Note Oj, Image - 03/09/[address] [address] [address] Scan Report Signed Patient: Fang Portillo#: [id number] : 1985Acct:[id number] Age/Sex: 40 / MADM Date: 03/07/25 Loc: HO.CT Attending Dr: Adriane Cabrera MD Ordering Physician: Adriane Cabrera MD Date of Service: 03/07/25 Procedure(s): CT facial bones wo IV con Accession Number(s): [id number] cc: Adriane Cabrera MD Report Number: [id number]: Total DLP = 173.00 mGy-cm CLINICAL HISTORY: [...] in OV> 03/09/25644 DD/ 4 TD/TT: 03/09/25644 Tetryl Blender Operator: us Adriane Cabrera MD IMG CT PROCEDURES Final Res ult * Chlamydia/N. Gonorrhoeae RNA, TMA, Urogenitial (01/21/2025 3:30 PM EST) CT PCR NOT DETECTED Not Detect. [facility] Comment:A not detected test result does [...] psychologicalconsequences. NG PCR NOT DETECTED Not Detect. [facility] Comment:A not detected test result does [...] PM EST 01/21/2025 5:45 PM EST Narrative [facility] - 01/22/2025 1:04 PM EST Urine us Adriane Cabrera MD LAB MICROBIOLOGY - GENERAL ORDERABLES Final Result Performing Organization Address [facility]/ZIP Co de Phone Number [facility] [address] [place] [phone] * Syphilis Screen (01/21/2025 3:29 PM EST) Syphilis Screen Nonreactive Nonreactive [facility] Blood 01/21/2025 3:29 PM EST 01/21/2025 5:45 PM EST us Adriane Cabrera MD LAB BLOOD ORDERABLES Final Result Performing Organization Address City/[facility]/ZIP Co de Phone Number [facility] [address] [place] [phone] * Hepatitis C Antibody with Reflex to HCV, RNA, Quantitative, Real-Time PCR (01/21/2025 3:29 PM EST) Pathologist [facility] Hepatitis C Antibody Nonreactive Nonreactive [facility] Comment:Antibodies to HCV no t detected; does not exclude early acuteHCV infection. Blood Venous blood specimen / Unknown 01/21/2025 3:29 PM EST 01/21/2025 5:45 PM EST us Adriane Cabrera MD LAB BLOOD ORDERABLES Final Result Performing Organization Address [facility]/ZIP Co de Phone Number [facility] [address] [place] [phone] * HIV-1/2 Antigen and Antibodies, Fourth Generation, with Reflexes (01/21/2025 3:29 PM EST) [facility] HIV AB/AG Nonreactive Nonreactive [facility] Comment:HIV-1 p24 Ag and/or HIV-1/HIV-2 Ab not detected.A test result that is nonreactive does not exclude thepossibility of exposure to or infection with HIV-1 and/orHIV-2. Nonreactive results in this assay for individualswith prior exposure to HIV-1 and/or HIV-2 may be due toantigen and antibody levels that are below the limit ofdetection of this assay.The [employer] HIV Ag/Ab Combo assay result andsupplemental assay results should be interpreted inconjunction with the patient's clinical presentation,history and other laboratory results. If the results areinconsistent with clinical evidence, additional testing issuggested to confirm the result. Blood Venous blood specimen / Unknown 01/21/2025 3:29 PM EST 01/21/2025 5:45 PM EST us Adriane Cabrera MD LAB BLOOD ORDERABLES Final Result Performing Organization Address [facility]/ZIP Co de Phone Number [facility] [address] [place] [phone] * (ABNORMAL) Lipid Panel, Standard (02/16/2024 10:45 AM EDT) Triglycerides 124 <150 mg/dL [facility] Comment:Desirable Triglyceri de: less than 150 mg/dLBorderline High Triglyceride 150-199 mg/dLHigh Triglyceride: 200-499 mg/dLVery High Triglyceride: greater than or equal to 5OO mg/dL Cholesterol 198 <200 mg/dL [facility] Comment:Desirable Cholestero l: less than 200 mg/dLBorderline High Cholesterol: 200-239 mg/dLHigh Cholesterol: greater than 239 mg/dL LDL Cholesterol Calculated 115(H) <100 mg/dL [facility] Comment:Desirable LDL: less than 100 mg/dLNear Optimal/Above Optimal LDL: 110- 129 mg/dLBorderline High LDL: 130-159 mg/dLHigh LDL: 160-189 mg/dLVery High LDL: greater than or equal to 190 mg/dL HDL Cholesterol 59 >40 mg/dL [facility] Comment:Desirable HDL: great er than 40 mg/dL Note: This HDL assay may give artificially low results in patients with liver disease. Blood Venous blood specimen / Unknown 02/16/2024 10:45 AM EDT 02/16/2024 2:30 PM EDT us Adriane Cabrera MD LAB BLOOD ORDERABLES Final Result [facility] [address] [place] [phone] from Last 3 Months or Most Recently Relevant to Health Maintenance Insurance CHOICE Care Teams Casing Running Machine Tender Relationship Specialty Start Date End Date Adriane Cabrera MD [address] [place] [phone] PCP - General Internal Medicine 02/09/17
== END 2025-04-18 08:56 | disposition home or self-care (01) ==
LOC: HO.XRAY 08:55
PROVIDERS: PCP Internal Medicine; Visit Provider Internal Medicine
DX: R10.31 Right lower quadrant pain (principal)
CPT/HCPCS: 74018

== ENCOUNTER → 2025-04-18 09:01 | Outpatient (BNV) | payer OTHER, SELFPAY | PROVIDERS: PCP Internal Medicine; Visit Provider Specialist | DX: R10.31 Right lower quadrant pain (principal) | CPT/HCPCS: 74018 ==

== ENCOUNTER 2025-04-22 11:09 | Outpatient (REF) | payer OTHER, SELFPAY ==
--- OUTSIDE RECORDS SUMMARY | 2025-04-22 12:26 | XMS_ITS | Clinical Summary ---
Author Organization [employer] Address [address] [facility] 7[address] [place] [address] Care Team Providers Care Train Announcer Name Role Phone Adriane Cabrera MD Primary [...] AM EDT): Pt was seen in the [facility] ER on the 03 of May. Pt [...] organization. Date Type Department Care Team Description 04/19/2025 Results Follow-Up [facility] [address] [place] [address] Leena Domínguez RN Urinalysis, Complete, with Reflex to Culture, Celiac Disease Comprehensive Panel, CBC auto differential 04/18/2025 Orders Only [facility] [address] [place] [address] Adriane Cabrera MD Other eosinophilia (Primary Dx) 04/17/2025 2:45 PM EDT Office Visit [facility] [address] [place] [address] Adriane Cabrera MD Right lower quadrant abdominal pain (Primary Dx); Bloating 04/17/2025 Travel 04/16/2025 Travel 04/16/[address] [address] Adriane Cabrera MD provider switch 04/16/[address] [address] Adriane Cabrera MD Nurse Triage 04/10/2025 Travel 04/09/2025 8:45 AM EDT Office Visit [facility] [address] [place] [address] Kamran Kirk MD Gastroesophageal reflux disease without esophagitis (Primary Dx) 04/09/2025 Travel 02/22/2025 Travel 01/21/2025 2:45 PM EST Office Visit [facility] [address] [place] [address] Adriane Cabrera MD Mood disorder ([facility]) (Primary Dx); Vitamin D deficiency; Other chest pain; Routine screening for STI (sexually transmitted infection); Acute pain of right shoulder 01/21/2025 Travel 01/20/2025 Travel from Last 3 Months Immunizations Immunization Administration [...] Care Team (Late st Contact Info) Description 07/16/2025 3:30 PM EDT Office Visit [facility] [address] [place], [place] [phone] Adriane Cabrera MD [address] [place], [place] [phone] Health Maintenance Due Date Last Done Comments Family Planning (PISQ) 2000 COVID-19 Vaccine (2023-2 5 season) 2024 05/20/2021, 04/22/2021 Hepatitis B Vaccines (3 of 3 - 19+ 3-dose series) 08/18/2024 03/16/2024, 02/16/2024 Influenza Vaccine (Season Ended) 2025 01/14/2022, 09/28/2019, 01/30/2018 Depression Monitoring 08/31/2025 03/01/2025 , 03/01/2025 Disability [...] Procedure Name Priority Date/Time Associated Diagnosis Comments XR KUB AND UPRIGHT 2 VIEWS Routine 04/19/2025 8:47 AM EDT Right lower quadrant abdominal pain URINALYSIS, COMPLETE, WITH REFLEX TO CULTURE Routine 04/17/2025 3:40 PM EDT Right lower quadrant abdominal pain CBC WITH AUTO DIFFERENTIAL Routine 04/17/2025 3:33 PM EDT Right lower quadrant abdominal pain CELIAC DISEASE COMPREHENSIVE PANEL Routine 04/17/2025 3:33 PM EDT Right lower quadrant abdominal pain Bloating CT SINUS FACIAL BONES WO CONTRAST Routine [...] Recently Relevant to Health Maintenance Results * XR KUB and Upright 2 Views (04/19/2025 8:47 AM EDT) Anatomical Region Laterality Modality Radiographic Emma ging 04/19/2025 8:47 AM EDT Narrative 04/19/2025 8:49 AM EDT ? [facility] ?[address] ?[place] [address] ?XRay Report ? Signed ? Patient: Portillo,Derian ?MR#: [id number] ?? 244 ? : 1985 ?Acct:[id number] ? Age/Sex: 40 / M ?ADM Date: 04/18/25 ? Loc: HO.XRAY ? Attending Dr: Adriane Cabrera MD ? Ordering Physician: Adriane Cabrera MD ?? Date of Service: 04/18/25 ?? Procedure(s): XR KUB ?? Accession Number(s): [id number] ? cc: Adriane Cabrera MD ? CLINICAL HISTORY: right lower quadrant abdominal pain ? 1 view abdomen ? Comparison: None ? Findings: ?? No pneumoperitoneum or pneumatosis. ?? No abnormal calcifications. ?? No acute fractures. ? IMPRESSION: ?? Normal bowel gas pattern ? This document has been electronically signed by: Deniz Cuevas MD on ?? 04/19/2025 08:47:52 ? Dictated By: ?Deniz Cuevas MD ? Signed By: ?<Electronically signed by Deniz Cuevas MD in OV> ?05// 0848 ? DD/DT: 05/30/ 0847 ? TD/TT: 05/30/25 0847 ? Shuttle Preparation Supervisor: ? Procedure Note Donotlynnetteinterpreter, Image - 04/19/[address] [address] XRay Report Signed Patient: Fang Portillo#: [id number] 244 : 1985Acct:[id number] Age/Sex: 40 / MADM Date: 04/18/25 Loc: HO.CHERYL Attending Dr: Adriane Cabrera MD Ordering Physician: Adriane Cabrera MD Date of Service: 04/18/25 Procedure(s): XR KUB Accession Number(s): [id number] cc: Adriane Cabrera MD CLINICAL HISTORY: right lower quadrant abdominal pain 1 view abdomen Comparison: None Findings: No pneumoperitoneum or pneumatosis. No abnormal calcifications. No acute fractures. IMPRESSION: Normal bowel gas pattern This document has been electronically signed by: Deniz Cuevas MD on 04/19/2025 08:47:52 Dictated By: Deniz Cuevas MD Signed By: <Electronically signed by Deniz Cuevas MD in OV> 04/19/25 0848 DD/ 0847 TD/TT: 04/19/25 0847 Shuttle Preparation Supervisor: us Adriane Cabrera MD IMG XR PROCEDURES Edited Re sult - Final * Urinalysis, Complete, with Reflex to Culture (04/17/2025 3:40 PM EDT) Color Urine Yellow [facility] Appearance Urine Clear [facility] PH 7.5 5.0 - 9.0 [facility] Glucose Urine UA Negative Negative mg/dL [facility] Urine Blood Negative Negative [facility] Specific [place] - Urine 1.025 1.005 - 1.025 [facility] Urine Protein Negative Neg-Trace mg/dL [facility] Urine Ketones Negative Negative mg/dL [facility] Nitrite Urine Negative Negative [facility] Leukocyte Esterase Urine Negative Negative [facility] RBC Urine 0-2 0 - 2 /HPF [facility] Urine WBC 0-5 0 - 5 /HPF [facility] Urine Squamous Epithelial Cell 0-2 0 - 2 /HPF [facility] Urine Bacteria None Seen None Seen [facility] Hyaline Casts, Urine 0-2 0 - 2 /LPF [facility] Urine 04/17/2025 3:40 PM EDT 04/17/2025 5:29 PM EDT Narrative [facility] - 04/17/2025 5:49 PM EDT [id number], Clean Catch us Adriane Cabrera MD LAB URINE ORDERABLES Final Result [facility] [address] [place] [address] [phone] * (ABNORMAL) CBC auto differential (04/17/2025 3:33 PM EDT) White Blood Count 7.1 4.8 - 10.8 X10*3/uL [facility] Red Blood Count 4.69 4.60 - 5.80 X10*6/uL [facility] Hemoglobin 14.2 14.0 - 18.0 g/dl [facility] Hematocrit 41.8(L) 42.0 - 52.0 % [facility] Mean Corpuscular Volume 89.1 80.0 - 98.0 fL [facility] Mean Corpuscular Hemoglobin 30.3 27.0 - 33.0 pg [facility] Mean Corpuscular HGB Conc 34.0 31.0 - 36.0 g/dl [facility] Red Cell Distribution Width 12.3 11.0 - 16.0 % [facility] Platelet Count 279 160 - 400 X10*3/uL [facility] Mean Platelet Volume 10.1 9.4 - 12.4 fL [facility] Neutrophils Percent Auto 52.1 45 - 73 % [facility] Imm Gran Pct Auto 0.3 0.0 - 0.4 % [facility] Lymphocytes Percent Auto 27.9 20 - 40 % [facility] Monocytes Percent Auto 5.2 2 - 11 % [facility] Eosinophils Percent Auto 13.8(H) 0 - 4 % [facility] Basophils Percent Auto 0.7 0 - 2 % [facility] NRBC Pct Auto 0.0 0.0 - 0.2 /100WBC [facility] Neutrophils Absolute Auto 3.7 2.0 - 8.3 x10*3/uL [facility] Imm Gran Abs Auto 0.02 0.00 - 0.03 X10*3/uL [facility] Lymphocytes Absolute Auto 2.0 1.2 - 4.9 X10*3/uL [facility] Monocytes Absolute Auto 0.4 0.1 - 1.2 X10*3/uL [facility] Eosinophils Absolute Auto 1.0(H) 0.0 - 0.4 X10*3/uL [facility] Basophils Absolute Auto 0.1 0.0 - 0.2 X10*3/uL [facility] NRBC Abs Auto 0.000 0.0 - 0.012 X10*3/uL [facility] Blood Venous blood specimen / Unknown 04/17/2025 3:33 PM EDT 04/17/2025 5:29 PM EDT us Adriane Cabrera MD LAB BLOOD ORDERABLES Final Result [facility] [address] [place] [phone] * Celiac Disease Comprehensive Panel (04/17/2025 3:33 PM EDT) Immunoglobulin A 270 47 - 310 mg/dL [facility] Comment:THIS TEST WAS PERFOR MED AT:[facility] [place] [phone] TORRES MD Transglutaminase IgA <1.0 U/mL [facility] Comment:Value Interpretation ----- <15.0 Antibody not detected> or = 15.0 Antibody detected Interpretation SEE NOTE [facility] Comment:No serological evide nce of celiac disease.tTG IgA may normalize in individuals with celiac diseasewho maintain a gluten-free diet. Consider HLA DQ2 andDQ8 testing to rule out celiac disease. Celiac diseaseis extremely rare in the absence of DQ2 or DQ8. Blood Venous blood specimen / Unknown 04/17/2025 3:33 PM EDT 04/17/2025 5:27 PM EDT us Adriane Cabrera MD LAB BLOOD ORDERABLES Final Result [facility] [address] [place] [address] [phone] * CT Sinus Facial Bones w/o Contrast (03/09/2025 6:45 AM EDT) Anatomical Region Laterality Modality Computed Tomogra phy 03/09/2025 6:45 AM EDT Narrative 03/09/2025 6:46 AM EDT ? [facility] ?[address] ?[place] [address] ? CT Scan Report ? Signed ? Patient: Derian Portillo ?MR#: [id number] ?? 244 ? : 1985 ?Acct:[id number] ? Age/Sex: 40 / M ?ADM Date: 03/07/25 ? Loc: HO.CT ? Attending Dr: Adriane Cabrera MD ? Ordering Physician: Adriane Cabrera MD ?? Date of Service: 03/07/25 ?? Procedure(s): CT facial bones wo IV con ?? Accession Number(s): [id number] ? cc: Adriane Cabrera MD ? Report Number: ?? [id number]: Total DLP = ??173.00 mGy-cm ? CLINICAL [...] MD in OV> ?03/09/25 0645 ? DD/ 4 ? TD/TT: 03/09/25644 ? Shuttle Preparation Supervisor: ? Procedure Note Donandréster, Image - 03/09/[address] [address] [address] Scan Report Signed Patient: Fang Portillo#: [id number] 244 : 1985Acct:[id number] Age/Sex: 40 / MADM Date: 03/07/25 Loc: HO.CT Attending Dr: Adriane Cabrera MD Ordering Physician: Adriane Cabrera MD Date of Service: 03/07/25 Procedure(s): CT facial bones wo IV con Accession Number(s): [id number] cc: Adriane Cabrera MD Report Number: [id number]: Total DLP = 173.00 mGy-cm CLINICAL HISTORY: [...] in OV> 03/09/25644 DD/ 4 TD/TT: 03/09/25644 Shuttle Preparation Supervisor: us Adriane Cabrera MD IMG CT PROCEDURES Final Res ult * Chlamydia/N. Gonorrhoeae RNA, TMA, Urogenitial (01/21/2025 3:30 PM EST) CT PCR NOT DETECTED Not Detect. [facility] Comment:A not detected test result does [...] psychologicalconsequences. NG PCR NOT DETECTED Not Detect. [facility] Comment:A not detected test result does [...] PM EST 01/21/2025 5:45 PM EST Narrative [facility] - 01/22/2025 1:04 PM EST Urine us Adriane Cabrera MD LAB MICROBIOLOGY - GENERAL ORDERABLES Final Result [facility] [address] [place] [phone] * Syphilis Screen (01/21/2025 3:29 PM EST) Syphilis Screen Nonreactive Nonreactive [facility] Blood 01/21/2025 3:29 PM EST 01/21/2025 5:45 PM EST Adriane Cabrera MD LAB BLOOD ORDERABLES Final Result Performing Organization Address [facility] Co de Phone Number [facility] [address] [place] [phone] * Hepatitis C Antibody with Reflex to HCV, RNA, Quantitative, Real-Time PCR (01/21/2025 3:29 PM EST) [facility] Hepatitis C Antibody Nonreactive Nonreactive [facility] Comment:Antibodies to HCV no t detected; does not exclude early acuteHCV infection. Blood Venous blood specimen / Unknown 01/21/2025 3:29 PM EST 01/21/2025 5:45 PM EST us Adriane Cabrera MD LAB BLOOD ORDERABLES Final Result Performing Organization Address [facility] de Phone Number [facility] [address] [place] [phone] * HIV-1/2 Antigen and Antibodies, Fourth Generation, with Reflexes (01/21/2025 3:29 PM EST) Pathologist [facility] HIV AB/AG Nonreactive Nonreactive [facility] Comment:HIV-1 p24 Ag and/or HIV-1/HIV-2 Ab not detected.A test result that is nonreactive does not exclude thepossibility of exposure to or infection with HIV-1 and/orHIV-2. Nonreactive results in this assay for individualswith prior exposure to HIV-1 and/or HIV-2 may be due toantigen and antibody levels that are below the limit ofdetection of this assay.The [employer] HIV Ag/Ab Combo assay result andsupplemental assay results should be interpreted inconjunction with the patient's clinical presentation,history and other laboratory results. If the results areinconsistent with clinical evidence, additional testing issuggested to confirm the result. Blood Venous blood specimen / Unknown 01/21/2025 3:29 PM EST 01/21/2025 5:45 PM EST us Adriane Cabrera MD LAB BLOOD ORDERABLES Final Result Performing Organization Address [facility] Co de Phone Number [facility] [address] [place] [phone] * (ABNORMAL) Lipid Panel, Standard (02/16/2024 10:45 AM EDT) Triglycerides 124 <150 mg/dL [facility] Comment:Desirable Triglyceri de: less than 150 mg/dLBorderline High Triglyceride 150-199 mg/dLHigh Triglyceride: 200-499 mg/dLVery High Triglyceride: greater than or equal to 5OO mg/dL Cholesterol 198 <200 mg/dL [facility] Comment:Desirable Cholestero l: less than 200 mg/dLBorderline High Cholesterol: 200-239 mg/dLHigh Cholesterol: greater than 239 mg/dL LDL Cholesterol Calculated 115(H) <100 mg/dL [facility] Comment:Desirable LDL: less than 100 mg/dLNear Optimal/Above Optimal LDL: 110- 129 mg/dLBorderline High LDL: 130-159 mg/dLHigh LDL: 160-189 mg/dLVery High LDL: greater than or equal to 190 mg/dL HDL Cholesterol 59 >40 mg/dL [facility] Comment:Desirable HDL: great er than 40 mg/dL Note: This HDL assay may give artificially low results in patients with liver disease. Blood Venous blood specimen / Unknown 02/16/2024 10:45 AM EDT 02/16/2024 2:30 PM EDT us Adriane Cabrera MD LAB BLOOD ORDERABLES Final Result Performing Organization Address [facility] Co de Phone Number [facility] [address] [place] [phone] from Last 3 Months or Most Recently Relevant to Health Maintenance Insurance CHOICE Care Teams Train Announcer Relationship Specialty Start Date End Date Adriane Cabrera MD [address] [place] [phone] PCP - General Internal Medicine 02/09/17
[2025-04-23 12:52] LABS: Adenovirus F 40/41 Not Detected (Not Detect.); Astrovirus Not Detected (Not Detect.); Campylobacter Not Detected (Not Detect.); Cryptosporidium Not Detected (Not Detect.); Cyclospora cayetanensis Not Detected (Not Detect.); E. coli EAEC Not Detected (Not Detect.); E. coli EPEC Not Detected (Not Detect.); E. coli ETEC Not Detected (Not Detect.); E. coli STEC Not Detected (Not Detect.); Entamoeba histolytica Not Detected (Not Detect.); Giardia lamblia Not Detected (Not Detect.); Norovirus GI/GII Not Detected (Not Detect.); Plesiomonas shigelloides Not Detected (Not Detect.); Rotavirus A Not Detected (Not Detect.); Salmonella Not Detected (Not Detect.); Sapovirus Not Detected (Not Detect.); Shigella sp./EIEC Not Detected (Not Detect.); Vibrio Not Detected (Not Detect.); Vibrio Cholerae Not Detected (Not Detect.); Yersinia enterocolitica Not Detected (Not Detect.)
== END 2025-04-22 11:10 | disposition home or self-care (01) ==
LOC: HO.CHCLNP 11:09
PROVIDERS: Visit Provider Internal Medicine
DX: D72.19 Other eosinophilia (principal)
CPT/HCPCS: 87507

== ENCOUNTER 2025-08-12 12:18 | Outpatient (REF) | payer OTHER, SELFPAY ==
[2025-08-12 14:21] LABS: MANUAL DIFF FLAG NO
[2025-08-12 14:33] LABS: Hematocrit 45.0 % (42.0-52.0); Hemoglobin 15.2 g/dl (14.0-18.0); Imm Gran Abs Auto 0.02 X10*3/uL (0.00-0.03); Imm Gran Pct Auto 0.3 % (0.0-0.4); Lymphocytes Absolute Auto 2.4 X10*3/uL (1.2-4.9); Mean Corpuscular HGB Conc 33.8 g/dl (31.0-36.0); Mean Corpuscular Hemoglobin 29.9 pg (27.0-33.0); Mean Corpuscular Volume 88.4 fL (80.0-98.0); NRBC Abs Auto 0.000 X10*3/uL (0.0-0.012); NRBC Pct Auto 0.0 /100WBC (0.0-0.2); Platelet Count 299 X10*3/uL (160-400); Red Blood Count 5.09 X10*6/uL (4.60-5.80); White Blood Count 6.3 X10*3/uL (4.8-10.8)
[2025-08-12 14:49] LABS: Alanine Aminotransferase 32 U/L (0-40); Albumin Level 4.8 g/dL (3.5-5.0); Alkaline Phosphatase 58 U/L (39-117); Anion Gap 11 (12-20); Aspartate Amino Transferase 31 U/L (5-37); Blood Urea Nitrogen 11 mg/dL (9-16); Calcium 9.5 mg/dL (8.4-10.2); Carbon Dioxide 28 mmol/L (22-29); Chloride 104 mmol/L (96-108); Estimated Glomerular Filt Rate > 60; Magnesium 2.3 mg/dL (1.6-2.6); Potassium 4.3 mmol/L (3.3-5.1); Sodium 139 mmol/L (135-145); Total Protein 7.7 g/dL (6.5-8.0)
[2025-08-13 13:22] LABS: HBS Num1 > 1000.00 mIU/mL (0-7.99); HBc Num1 0.05 S/CO (0.00-0.79); HBsAGNum1 0.43 S/CO (0.00-0.99); Hepatitis B Surface Antigen Negative (Negative); ~Hepatitis B Surface Antibody REACTIVE (Nonreactive)
== END 2025-08-12 12:19 | disposition home or self-care (01) ==
LOC: HO.CHCLDS 12:18
PROVIDERS: Visit Provider Family Medicine
DX: Z13.29 Encounter for screening for other suspected endocrine disorder (principal); Z13.89 Encounter for screening for other disorder; R10.84 Generalized abdominal pain
CPT/HCPCS: 36415; 80053; 83735; 84443; 85025; 86682; 86704; 86706; 87340

== ENCOUNTER 2025-08-19 11:01 | Outpatient (REF) | payer OTHER, SELFPAY ==
--- OUTSIDE RECORDS SUMMARY | 2025-08-19 12:29 | XMS_ITS | Encounter Summary ---
Author Organization [employer] Address [address] [place] [address] Care Team Providers Care Audiometrist Name Role Phone Adriane Cabrera MD Primary Care Provider [phone] Tamiko Bush MD Primary Care Provider [phone] Reason for Referral * Imaging (Routine) - Pending Review Specialty Diagnoses / Procedures Referred By Conteve davies Referred To Contact Radiology Diagnoses Right sided facial pain Procedures CT FACIAL BONES WO CONTRAST Adriane Cabrera MD [address] [place] [address] Phone: tel: fax: [address] Phone: tel: fax: Referral ID Status Reason Start Date Expiration Date V isits Requested Visits Authorized [id number] Pending Review 12/21/2024 12/21/2025 1 1 Encounter Details Date Type Department Care Team (Late st Contact Info) Description 12/21/2024 Orders Only [facility] [address] [place], [place] [phone] Adriane Cabrera MD [address] [place] [address] Right sided facial pain (Primary Dx) Social [...] Care Team (Late st Contact Info) Description 09/23/2025 11:15 AM EST Office Visit [facility] [address] [place] [address] Tamiko Bush MD [address] [place] [address] Scheduled Orders Name Type Priority Associated Diagnoses [...] documented as of this encounter Care Teams Audiometrist Relationship Specialty Start Date End Date Adriane Cabrera MD [address] [place] [address] PCP - General Internal Medicine 02/09/17 05/07/25 Tamiko Bush MD [address] [place] [address] PCP - General Family Medicine 05/08/25 Michael Obrien NP Nurse Practitioner Psychiatry 02/19/25 documented as of this encounter
--- OUTSIDE RECORDS SUMMARY | 2025-08-19 12:29 | XMS_ITS | Encounter Summary ---
Author Organization [employer] Address [address] [facility] [address] [place] [address] Care Team Providers Care Rn Family Name Role Phone Adriane Cabrera MD Primary Care Provider [phone] Tamiko Bush MD Primary Care Provider [phone] Encounter Details Date Type Department Care Team ([facility] st Contact Info) Description 04/18/2025 Orders Only [facility] [address] [place], [place] [phone] Adriane Cabrera MD [address] [place] [address] Other eosinophilia (Primary Dx) Social History Tobacco Use Types [...] Description 09/23/2025 11:15 AM EST Office Visit [facility] [address] [place] [address] Tamiko Bush MD [address] [place] [address] documented as of this encounter Procedures Procedure Name Priority Date/Time Associated Diagnosis Comments GASTROINTESTINAL PANEL Routine 10:20 AM EDT Other eosinophilia documented in this encounter Results * Stool - Gastrointestinal panel (04/22/2025 10:20 AM EDT) Campylobacter Not Detected Not Detect. [facility] Plesiomonas shigelloides Not Detected Not Detect. [facility] Salmonella Not Detected Not Detect. [facility] Vibrio Not Detected Not Detect. [facility] Vibrio cholerae Not Detected Not Detect. [facility] YERSINIA ENTEROCOLITICA Not Detected Not Detect. [facility] Enteroaggregative E. coli (EAEC) Not Detected Not Detect. [facility] Enteropathogenic E. coli (EPEC) Not Detected Not Detect. [facility] Enterotoxigenic E. coli (ETEC) lt/st Not Detected Not Detect. [facility] Shiga-like toxin-producing E. coli (STEC) stx1/stx2 Not Detected Not Detect. [facility] E coli O157 Not applicable Not Detect. [facility] Comment:E. coli containing t he O157 antigen are a subset ofShiga-like toxin- producing E. coli (STEC). Shigella/Enteroinvasive E. coli (EIEC) Not Detected Not Detect. [facility] Cryptosporidium Not Detected Not Detect. [facility] Cyclospora cayetanensis Not Detected Not Detect. [facility] Entamoeba histolytica Not Detected Not Detect. [facility] Giardia lamblia Not Detected Not Detect. [facility] Adenovirus F 40/41 Not Detected Not Detect. [facility] Astrovirus Not Detected Not Detect. [facility] Norovirus GI/GII Not Detected Not Detect. [facility] Rotavirus A Not Detected Not Detect. [facility] Sapovirus Not Detected Not Detect. [facility] Comment: All results must be correlated with clinical findings.Negative results do not exclude the possibility ofgastrointestinal infection and should not be used as thesole basis for diagnosis, treatment, or other managementdecisions. Virus, bacteria, and parasite nucleic acid maypersist in vivo independently of organism viability.Additionally, some organisms may be carriedasymptomatically.Detection of organism targets does not imply that thecorresponding organisms are infectious or are the causativeagents for clinical symptoms. There is a risk of falsenegative values due to the presence of sequence variants inthe gene targets of the assay, amplification inhibitors inspecimens, or inadequate numbers of organisms foramplification.The identification of several diarrheagenic E. colipathotypes has historically relied upon phenotypiccharacteristics. This panel targets genetic determinantscharacteristic of most pathogenic strains, but may notdetect all strains having phenotypic characteristics of apathotype.The performance of this test has not been established formonitoring treatment of infection with any of the panelorganisms.This assay is performed by Multiplexed PCR, utilizing [employer]. Stool Rectal contents / Unknown 04/22/2025 10:20 AM EDT 04/22/2025 2:10 PM EDT Adriane Cabrera MD LAB MICROBIOLOGY - GENERAL ORDERABLES Final Result [facility] [address] [place] [phone] documented in this encounter Visit Diagnoses Diagnosis Other eosinophilia- Primary documented in this encounter Additional Health Concerns Assessment Noted Time PHQ-9 Depression Total Score: 11 025 3:29 PM EDT documented as of this encounter Care Teams Rn Family Relationship Specialty Start Date End Date Adriane Cabrera MD [address] [place] [address] PCP - General Internal Medicine 02/09/17 05/07/25 Tamiko Bush MD [address] [place] [address] PCP - General Family Medicine 05/08/25 Michael Obrien NP Nurse Practitioner Psychiatry 02/19/25 documented as of this encounter
--- OUTSIDE RECORDS SUMMARY | 2025-08-19 12:29 | XMS_ITS | Clinical Summary ---
Author Organization [employer] Address [address] [place] [address] Care Team Providers Care Coat Hanger Shaper Machine Operator Name Role Phone Tamiko Bush MD Primary Care Provider [phone] Allergies No known active allergies Medications * This document contains information received from the source organization and may not represent a complete record from that organization. Omeprazole 20 MG tablet delayed-releas e Take 1 tablet (20 mg) by mouth Once per day. 90 tablet 1 04/09/20 25 Active simethicone (Mylicon) 80 MG tabletIndicati ons:Bloating Take 1 tablet (80 mg) by mouth if needed in the morning, at noon, in the evening, and at bedtime (abdominal pain). 90 tablet 04/17/20 25 Active ARIPiprazole (Abilify) 2 MG tablet TOME 1 TABLETA POR V A ORAL TODOS LOS D 06/16/20 25 Active hydrOXYzine HCl (Atarax) 10 MG tablet TOME 1 TABLETA POR V A ORAL PRASANTH VECES AL D A CUANDO SEA NECESARIO 07/20/20 25 Active hydrocortisone 1 % lotionIndicati ons:Foreskin fissure Apply topically 2 times daily. 29 mL 02/16/20 24 025 Discontinued cholecalcifero l (Vitamin D-3) 50 MCG (1999) capsule take 1 by Oral route once a day 07/06/20 22 025 Discontinued diclofenac sodium 3 % gel Apply 0.5 g topically. 05/03/20 24 025 Discontinued indomethacin (Indocin) 50 MG capsule Take 1 capsule (50 mg) by mouth with breakfast and with evening meal. 60 capsule 05/11/20 24 025 Discontinued ibuprofen 600 MG tablet Take 1 tablet (600 mg) by mouth every 8 (eight) hours if needed for moderate pain. 90 tablet 1 12/17/19 25 025 Discontinued ARIPiprazole (Abilify) 5 MG tabletIndicati ons:Mood disorder ([facility]) TOME 1 TABLETA POR VIA ORAL TODOS LOS MELISSA EN LA MANANA 90 tablet 05/10/20 025 Discontinued Active Problems Problem Noted Date Diagnosed Date Gastroesophageal reflux disease without esophagi tis 04/09/2025 Assessment & Plan (04/09/2025 9:28 AM EDT): Symptoms started over 1 week ago, denied fever/chills, no abdominal bloating. Will start on omeprazole, lifestyle modifications reviewed, ER precautions reviewed, call back if not improving in 1 week Moderate major depression ([facility]/HCC) 03/01/2025 Mild depression 03/01/2025 History of psychological trauma 03/01/2025 Chest pain 05/11/2024 Assessment & Plan (05/11/2024 11:19 AM EDT): Pt was seen in the [facility] ER on the 03 of May. Pt [...] 2 Views Indomethacin (Indocin) 50 MG capsule Bipolar 1 disorder (CMS/HCC) 12/16/2022 Assessment & Plan (04/04/2023 1:12 PM [...] Encounters Date Type Department Care Team Description 08/13/2025 Results Follow-Up [facility] MED & PEDS [address] [place] [address] Tamiko Bush MD CBC auto differential, Comprehensive Metabolic Panel, TSH W/Reflex to FT4, Magnesium 08/12/2025 11:30 AM EDT Office Visit [facility] MED & PEDS [address] [place] [address] Tamiko Bush MD Generalized abdominal pain (Primary Dx); Encounter for health-related screening; Encounter for immunization; Polyarthralgia 08/12/2025 Travel 08/05/2025 Patient Outreach [facility] MEDICINE [address] [place] [address] Tamiko Bush MD Pre-visit Planning (SDOH screening completed on 01/21/25 ) from Last 3 Months Immunizations Immunization Administration Dates Next Due Hep B, adult 03/16/2024,02/16/2024 Influenza injectable quadriv alent IIV4 with preservative 09/28/2019,01/30/2018 Influenza injectable quadrivalent preservative f ree 01/14/2022 Influenza, seasonal, injectable, preservative fr ee 08/12/2025 Tdap 05/11/2024,01/30/2018 Family History Medical History Relation Name Comments Depression Brother COPD Father Heart attack Father's Brother Breast cancer Mother Relation Name Status Comments Brother Father Father's Brother Mother Social History Tobacco Use Types Packs/Day Years Used Date Smoking Tobacco: Never Passive Smoke Exposure: Never Smokeless Tobacco: Never Alcohol Use Standard Drinks/Week Comments Yes 0 (1 standard drink = 0.6 oz pur e alcohol) Social Alcohol Answer Date Recorded How often do [...] Sign Reading Time Taken Comments Blood Pressure 120/86 08/12/2025 11:25 AM EDT Pulse 84 08/12/2025 11:25 AM EDT Temperature 36.5 C (97.7 F) 08/12/2025 11:25 AM EDT Respiratory Rate 20 08/12/2025 11:25 AM EDT Oxygen Saturation 98% 08/12/2025 11:25 AM EDT Inhaled Oxygen Concentration - - Weight 64.5 kg (142 lb 3.2 oz) 08/12/2025 11:25 AM EDT Height 173 cm (5' 8.11 ) 08/12/2025 11:25 AM EDT Body Mass Index 21.55 08/12/2025 11:25 AM EDT Plan of Treatment Upcoming Encounters Date Type Department Care Team (Late st Contact Info) Description 09/23/2025 11:15 AM EST Office Visit [facility] MED & PEDS [address] [place] [address] Tamiko Bush MD [address] [place] [address] Health Maintenance Due Date Last Done Comments Family Planning (PISQ) 2000 HPV Vaccines (1 - Male 3-dose series) 2000 Hepatitis B Vaccines (3 of 3 - 19+ 3-dose series) 08/18/2024 03/16/2024, 02/16/2024 COVID-19 Vaccine (3 - 2024- season) 2025 05/20/2021, 04/22/2021 Depression Monitoring 08/31/2025 03/01/2025, 025 Disability Screening 12/17/2025 12/17/2024 Alcohol/Substance Use Screening 01/21/2026 01/21/2025 SDOH Screening 01/21/2026 01/21/2025 Tobacco Screening 08/12/2026 08/12/2025 Lipid Panel 02/15/2029 02/16/2024, 01/18/2022 DTaP/Tdap/Td Vaccines (3 - Td or Tdap) 05/11/2034 05/11/2024, 01/30/2018 Zoster Vaccines (1 of 2) 2035 RSV Patients and Patients Aged 60 years or older (1 - 1-dose 75+ series) 2060 HIV Screening Completed 01/21/2025, 01/20, 11/26/2021 Hepatitis C Screening Completed 01/21/2025, 022 Influenza Vaccine Completed 08/12/2025, , 09/28/2019, Additional history exists HIB Vaccines Aged Out No longer eligi [...] Years) and At-Risk Patients (6 to 49) Years Aged Out No longer eligible based on patient's age to complete this topic RSV under 20 months Aged Out No longe r eligible based on patient's age to complete this topic Rotavirus Vaccines Aged Out No longer eligible based on patient's age to complete this topic Procedures Procedure Name Priority Date/Time Associated Diagnosis Comments STRONGYLOIDES AB IGG Routine 08/12/2025 12:20 PM EDT Generalized abdominal pain MAGNESIUM Routine 08/12/2025 12:20 PM EDT Generalized abdominal pain TSH W/REFLEX TO FT4 Routine 08/12/2025 1 2:20 PM EDT Generalized abdominal pain COMPREHENSIVE METABOLIC PANEL Routine 08/12/2025 12:20 PM EDT Generalized abdominal pain CBC WITH AUTO DIFFERENTIAL Routine 08/12/2025 12:20 PM EDT Generalized abdominal pain HEPATITIS B SURFACE ANTIGEN, EIA Routine 08/12/2025 12:20 PM EDT Encounter for health-related screening HEPATITIS B CORE AB TOTAL Routine 08/12/2025 12:20 PM EDT Encounter for health-related screening HEPATITIS B SURFACE ANTIBODY, QUALITATIVE Routine 08/12/2025 12:20 PM EDT Encounter for health-related screening HEPATITIS C AB W/REFL TO HCV RNA, QN, PCR Routine 01/21/2025 3:29 PM EST Routine screening for STI (sexually transmitted infection) HIV 1/2 ANTIGEN/ANTIBODY, FOURTH GENERATION W/RFL Routine 01/21/2025 3:29 PM EST Routine screening for STI (sexually transmitted infection) LIPID PANEL, STANDARD Routine 02/16/2024 10:45 AM EDT Annual physical exam from Last 3 Months or Most Recently Relevant to Health Maintenance Results * TSH W/Reflex to FT4 (08/12/2025 12:20 PM EDT) TSH reflex Free T4 2.95 0.32 - 4.0 uIU/mL [facility] Blood Venous blood specimen / Unknown 08/12/2025 12:20 PM EDT 08/12/2025 2:14 PM EDT Tamiko Bush MD LAB BLOOD ORDERABLES Final Re sult Performing Organization Address [facility] Co de Phone Number [facility] [address] [place] [address] [phone] * Strongyloides Antibody (IgG) (08/12/2025 12:20 PM EDT) Pathologist [facility] Strongyloides Antibody IgG NEGATIVE [facility] Comment:REFERENCE RANGE: NEG ATIVEStrongyloides stercoralis is a parasiticNematode found in tropical and subtropicalregions. Because of low larval densities infeces, stool examination is a relativelyinsensitive diagnostic test; antibody detectionoffers increased sensitivity. Patients withlatent infections who are immunosuppressed orreceiving immunosuppressive therapy are at riskof life- threatening hyperinfection. Significantcrossreactivity may be observed in otherhelminth infections.THIS TEST WAS PERFORMED AT:[employer] [id number] [facility] [place] [id number] RANDOLPH MD,PHD,ISAI Blood Venous blood specimen / Unknown 08/12/2025 12:20 PM EDT 08/12/2025 2:14 PM EDT Tamiko Bush MD LAB BLOOD ORDERABLES Final Re sult Performing Organization Address [facility] Co de Phone Number [facility] [address] [place] [phone] * CBC auto differential (08/12/2025 12:20 PM EDT) White Blood Count 6.3 4.8 - 10.8 X10*3/uL [facility] Red Blood Count 5.09 4.60 - 5.80 X10*6/uL [facility] Hemoglobin 15.2 14.0 - 18.0 g/dl [facility] Hematocrit 45.0 42.0 - 52.0 % [facility] Mean Corpuscular Volume 88.4 80.0 - 98.0 fL [facility] Mean Corpuscular Hemoglobin 29.9 27.0 - 33.0 pg [facility] Mean Corpuscular HGB Conc 33.8 31.0 - 36.0 g/dl [facility] Red Cell Distribution Width 12.0 11.0 - 16.0 % [facility] Platelet Count 299 160 - 400 X10*3/uL [facility] Mean Platelet Volume 9.4 9.4 - 12.4 fL [facility] Neutrophils Percent Auto 53.5 45 - 73 % [facility] Imm Gran Pct Auto 0.3 0.0 - 0.4 % [facility] Lymphocytes Percent Auto 38.3 20 - 40 % [facility] Monocytes Percent Auto 5.7 2 - 11 % [facility] Eosinophils Percent Auto 1.6 0 - 4 % [facility] Basophils Percent Auto 0.6 0 - 2 % [facility] NRBC Pct Auto 0.0 0.0 - 0.2 /100WBC [facility] Neutrophils Absolute Auto 3.4 2.0 - 8.3 x10*3/uL [facility] Imm Gran Abs Auto 0.02 0.00 - 0.03 X10*3/uL [facility] Lymphocytes Absolute Auto 2.4 1.2 - 4.9 X10*3/uL [facility] Monocytes Absolute Auto 0.4 0.1 - 1.2 X10*3/uL [facility] Eosinophils Absolute Auto 0.1 0.0 - 0.4 X10*3/uL [facility] Basophils Absolute Auto 0.0 0.0 - 0.2 X10*3/uL [facility] NRBC Abs Auto 0.000 0.0 - 0.012 X10*3/uL [facility] Blood Venous blood specimen / Unknown 08/12/2025 12:20 PM EDT 08/12/2025 2:14 PM EDT us Tamiko Bush MD LAB BLOOD ORDERABLES Final Re sult Performing Organization Address [facility]/ZIP Co de Phone Number [facility] [address] [place] [phone] * Hepatitis B surface antigen, EIA (08/12/2025 12:20 PM EDT) Hepatitis B Surface Ag Negative Negative [facility] Blood Venous blood specimen / Unknown 08/12/2025 12:20 PM EDT 08/12/2025 2:14 PM EDT Tamiko Bush MD LAB BLOOD ORDERABLES Final Re sult Performing Organization Address [facility] Co de Phone Number [facility] [address] [place] [phone] * Hepatitis B Core Antibody, Total (08/12/2025 12:20 PM EDT) Hepatitis B Core Antibody Nonreactive Nonreactive [facility] Blood Venous blood specimen / Unknown 08/12/2025 12:20 PM EDT 08/12/2025 2:14 PM EDT Tamiko Bush MD LAB BLOOD ORDERABLES Final Re sult Performing Organization Address [facility] Co de Phone Number [facility] [address] [place] [phone] * Hepatitis B Surface Antibody, Qualitative (08/12/2025 12:20 PM EDT) ~Hepatitis B Surface Antibody REACTIVE Nonreactive [facility] Comment:REACTIVE: > 11.99 mI U/mL Blood Venous blood specimen / Unknown 08/12/2025 12:20 PM EDT 08/12/2025 2:14 PM EDT Tamiko Bush MD LAB BLOOD ORDERABLES Final Re sult Performing Organization Address [facility]/ZIP Co de Phone Number [facility] [address] [place] [address] [phone] * Magnesium (08/12/2025 12:20 PM EDT) Pathologist [facility] Magnesium 2.3 1.6 - 2.6 mg/dL [facility] Blood Venous blood specimen / Unknown 08/12/2025 12:20 PM EDT 08/12/2025 2:14 PM EDT us Tamiko Bush MD LAB BLOOD ORDERABLES Final Re sult Performing Organization Address [facility] Co de Phone Number [facility] [address] [place] [phone] [phone] * (ABNORMAL) Comprehensive Metabolic Panel (08/12/2025 12:20 PM EDT) Pathologist [facility] Sodium 139 135 - 145 mmol/L [facility] Potassium 4.3 3.3 - 5.1 mmol/L [facility] Chloride 104 96 - 108 mmol/L [facility] Carbon Dioxide 28 22 - 29 mmol/L [facility] Anion Gap 11(L) 12 - 20 [facility] Urea Nitrogen (BUN) 11 9 - 16 mg/dL [facility] Creatinine, Serum 0.99 0.5 - 1.4 mg/dL [facility] Estimated Glomerular Filt Rate >60 [facility] Comment:Chronic Kidney Disea se: Estimated GFR < 60 mL/min/1.69s2Imygqv Kidney Disease: Estimated GFR < 15 mL/min/1.73m2 Glucose 88 60 - 115 mg/dL [facility] Calcium 9.5 8.4 - 10.2 mg/dL [facility] Bilirubin, Total 0.4 0.0 - 1.0 mg/dL [facility] Aspartate Amino Transferase 31 5 - 37 U/L [facility] Alanine Aminotransferase 32 0 - 40 U/L [facility] Total Protein 7.7 6.5 - 8.0 g/dL [facility] Albumin Level 4.8 3.5 - 5.0 g/dL [facility] Alkaline Phosphatase 58 39 - 117 U/L [facility] Blood Venous blood specimen / Unknown 08/12/2025 12:20 PM EDT 08/12/2025 2:14 PM EDT us Tamiko Bush MD LAB BLOOD ORDERABLES Final Re sult Performing Organization Address [facility] Co de Phone Number [facility] [address] [place] [phone] * Hepatitis C Antibody with Reflex to HCV, RNA, Quantitative, Real-Time PCR (01/21/2025 3:29 PM EST) Pathologist [facility] Hepatitis C Antibody Nonreactive Nonreactive [facility] Comment:Antibodies to HCV no t detected; does not exclude early acuteHCV infection. Blood Venous blood specimen / Unknown 01/21/2025 3:29 PM EST 01/21/2025 5:45 PM EST us Adriane Cabrera MD LAB BLOOD ORDERABLES Final Result Performing Organization Address [facility] Co de Phone Number [facility] [address] [place] [phone] * HIV-1/2 Antigen and Antibodies, Fourth Generation, with Reflexes (01/21/2025 3:29 PM EST) HIV AB/AG Nonreactive Nonreactive [facility] Comment:HIV-1 p24 Ag and/or HIV-1/HIV-2 Ab not detected.A test result that is nonreactive does not exclude thepossibility of exposure to or infection with HIV-1 and/orHIV-2. Nonreactive results in this assay for individualswith prior exposure to HIV-1 and/or HIV-2 may be due toantigen and antibody levels that are below the limit ofdetection of this assay.The [email or web address] HIV Ag/Ab Combo assay result andsupplemental assay results should be interpreted inconjunction with the patient's clinical presentation,history and other laboratory results. If the results areinconsistent with clinical evidence, additional testing issuggested to confirm the result. Blood Venous blood specimen / Unknown 01/21/2025 3:29 PM EST 01/21/2025 5:45 PM EST us Adriane Cabrera MD LAB BLOOD ORDERABLES Final Result Performing Organization Address [facility] de Phone Number [facility] [address] [place] [phone] * (ABNORMAL) Lipid Panel, Standard (02/16/2024 10:45 AM EDT) Triglycerides 124 <150 mg/dL [facility] Comment:Desirable Triglyceri de: less than 150 mg/dLBorderline High Triglyceride 150-199 mg/dLHigh Triglyceride: 200-499 mg/dLVery High Triglyceride: greater than or equal to 5OO mg/dL Cholesterol 198 <200 mg/dL [facility] Comment:Desirable Cholestero l: less than 200 mg/dLBorderline High Cholesterol: 200-239 mg/dLHigh Cholesterol: greater than 239 mg/dL LDL Cholesterol Calculated 115(H) <100 mg/dL [facility] Comment:Desirable LDL: less than 100 mg/dLNear Optimal/Above Optimal LDL: 110- 129 mg/dLBorderline High LDL: 130-159 mg/dLHigh LDL: 160-189 mg/dLVery High LDL: greater than or equal to 190 mg/dL HDL Cholesterol 59 >40 mg/dL [facility] Comment:Desirable HDL: great er than 40 mg/dL Note: This HDL assay may give artificially low results in patients with liver disease. Blood Venous blood specimen / Unknown 02/16/2024 10:45 AM EDT 02/16/2024 2:30 PM EDT us Adriane Cabrera MD LAB BLOOD ORDERABLES Final Result Performing Organization Address [facility] Co de Phone Number [facility] [address] [place] [address] [phone] from Last 3 Months or Most Recently Relevant to Health Maintenance Insurance [id number] Care Teams Coat Hanger Shaper Machine Operator Relationship Specialty Start Date End Date Tamiko Bush MD [address] [place] [phone] PCP - General Family Medicine 05/08/25 Michael Obrien NP Nurse Practitioner Psychiatry 02/19/25
--- OUTSIDE RECORDS SUMMARY | 2025-08-19 12:29 | XMS_ITS | Encounter Summary ---
Author Organization [employer] [facility] Address [address] [place] [address] Care Team Providers Care Coyote Hunter Name Role Phone Adriane Cabrera MD Primary Care Provider [phone] Tamiko Bush MD Primary Care Provider [phone] Encounter Details Date Type Department Care Team (Latest Contact Info) Description 10/09/2019 Abstract [facility] CONVERSIONS Dental, Provider, DDS Social [...] Upcoming Encounters Date Type Department Care Team ( st Contact Info) Description 09/23/2025 11:15 AM EST Office Visit [facility] MED & PEDS [address] [place] [address] Tamiko Bush MD [address] [place] [address] documented as of this encounter Visit Diagnoses Not on filedocumented in this encounter Care Teams Coyote Hunter Relationship Specialty Start Date End Date Adriane Cabrera MD [address] [place] [address] PCP - General Internal Medicine 02/09/17 05/07/25 Tamiko Bush MD [address] [place] [phone] PCP - General Family Medicine 05/08/25 Michael Obrien NP Nurse Practitioner Psychiatry 02/19/25 documented as of this encounter
--- OUTSIDE RECORDS SUMMARY | 2025-08-19 12:29 | XMS_ITS | Encounter Summary ---
Author Organization [employer] Address [address] [address] Care Team Providers Care Head Of Partner Development Name Role Phone Adriane Cabrera MD Primary Care Provider [phone] Tamiko Bush MD Primary Care Provider Reason for Visit * Reason Onset Date Comments fyi 12/24/2024 Encounter Details Date Type Department Care Team (Late st Contact Info) Description 12/24/2024 Telephone [facility] MEDICINE [address] [place] [address] Adriane Cabrera MD [address] [place] [address] Social History Tobacco Use Types Packs/Day Years [...] be done without contrast. Please contact Hanny [phone] documented in this encounter Plan of Treatment Upcoming Encounters Date Type Department Care Team (Late st Contact Info) Description 09/23/2025 11:15 AM EST Office Visit [facility] MED & PEDS [address] [place] [address] Tamiko Bush MD [address] [place] [address] documented as of this encounter Visit Diagnoses Not on filedocumented in this encounter Additional Health Concerns Assessment Noted Time PHQ-9 Depression Total Score: 5 04/04/20 23 1:00 PM EDT documented as of this encounter Care Teams Head Of Partner Development Relationship Specialty Start Date End Date Adriane Cabrera MD [address] [place] [address] PCP - General Internal Medicine 02/09/17 05/07/25 Tamiko Bush MD [address] [place] [phone] PCP - General Family Medicine 05/08/25 Michael Obrien NP Nurse Practitioner Psychiatry 02/19/25 documented as of this encounter
--- OUTSIDE RECORDS SUMMARY | 2025-08-19 12:29 | XMS_ITS | Encounter Summary ---
Author Organization [employer] Address [address] [place] [address] Care Team Providers Care Septic Tank Service Technician Name Role Phone Tamiko Bush MD Primary Care Provider [phone] Reason for Visit * Reason Onset Date Comments Results 08/13/2025 Lab Orders 08/13/2025 Encounter Details Date Type Department Care Team (Latest Contact Info) Description 08/13/2025 Results Follow-Up [facility] MED & PEDS [address] [place], [place] [phone] Tamiko Bush MD [address] [place] [address] CBC auto differential, Comprehensive Metabolic Panel, TSH W/Reflex to FT4, Magnesium Social History Tobacco Use Types Packs/Day Years [...] encounter Miscellaneous Notes * Telephone Encounter - Tammie Guo RN - 08/13/2025 11:11 AM EDT TC x 2 placed to pt via [employer] texture artist (ID#[id number]) to inform and advise of below PCP message. Advised pt per PCP all of the patient's labs came back within normal limits. Advised PCP has added an order for autoimmune testing to investigate his ongoing diffuse joint aches. Advised pt they can proceed with the blood draw at their earliest convenience. Pt verbalized understanding and denies questions at this time. ----- Message from Tamiko Bush MD sent at 08/13/2025 10:03 AM EDT ----- Yani Browning Team! Can you please call Derian Portillo and inform about results? Following up on yesterday's visit, all of the patient's labs came back within normal limits. However, I have added an order for autoimmune testing to investigate his ongoing diffuse joint aches. He can proceed with the blood draw at his earliest convenience. Thanks! Tamiko ----- Message ----- From: Interface, Lab Results In Sent: 08/12/2025 2:34 PM EDT To: Tamiko Bush MD * Telephone Encounter - Huang Tim - 08/13/2025 11:07 AM EDT Tc from pt requesting call back regarding prior message Contact pt at [phone] (lithuanian) * Telephone Encounter - Tammie Guo RN - 08/13/2025 10:26 AM EDT TC placed to pt via [employer] texture artist ([employer] ID#[id number]) to inform and advise of below PCP message. No answer, LVM to call office back and ask to speak to the nurses. ----- Message from Tamiko Bush MD sent at 08/13/2025 10:03 AM EDT ----- [facility] [employer] Team! Can you please call Derian Portillo and inform about results? Following up on yesterday's visit, all of the patient's labs came back within normal limits. However, I have added an order for autoimmune testing to investigate his ongoing diffuse joint aches. He can proceed with the blood draw at his earliest convenience. Thanks! Tamiko ----- Message ----- From: Interface, Lab Results In Sent: 08/12/2025 2:34 PM EDT To: Tamiko Bush MD documented in this encounter Plan of Treatment Upcoming Encounters Date Type Department Care Team (Late st Contact Info) Description 09/23/2025 11:15 AM EST Office Visit [facility] MED & PEDS [address] [place] [address] Tamiko Bush MD [address] [place] [address] documented as of this encounter Visit Diagnoses Not on filedocumented in this encounter Additional Health Concerns Assessment Noted Time PHQ-9 Depression Total Score: 11 025 3:29 PM EDT documented as of this encounter Care Teams Septic Tank Service Technician Relationship Specialty Start Date End Date Tamiko Bush MD [address] [place] [address] PCP - General Family Medicine 05/08/25 Michael Obrien NP Nurse Practitioner Psychiatry 02/19/25 documented as of this encounter
[2025-08-25 20:03] LABS: Calprotectin, Fecal 89 mcg/g
== END 2025-08-19 11:02 | disposition home or self-care (01) ==
LOC: HO.CHCLDS 11:01
PROVIDERS: Visit Provider Family Medicine
DX: R10.84 Generalized abdominal pain (principal); M25.50 Pain in unspecified joint
CPT/HCPCS: 36415; 83993; 85652; 86140; 86200; 86431